=== PATIENT | male | born 1960 | race Two or more races ===

== ENCOUNTER 2016-12-04 22:38 | Emergency (ER) | payer MEDICAID ==
[~2016-12-04] VITALS: Ht 180.3 cm; Wt 82.0 kg
[~2016-12-04 22:38] MED LIST: HYDR-3245 PO; METH750T2 PO; METO25TA35 PO; TRAM50TA2 PO
[2016-12-04] MEDS ORDERED: SODIUM CHLORIDE FLUSH 10ML SYR IVF ONE (23:00)
[2016-12-04 23:13] LABS: HEMATOCRIT 34.3 % (39.2-51.8); WHITE BLOOD COUNT 5.8 x10^3/uL (3.4-10)
[2016-12-04 23:18] LABS: BLOOD UREA NITROGEN 6 mg/dL (7-18)
[2016-12-04 23:19] LABS: ASPARTATE AMINO TRANSFERASE 48 U/L (15-37)
[2016-12-04 23:23] LABS: IS PT STATUS REG ER OR PRE ER? YES
[2016-12-05 01:48] VITALS: BP 138/84
== END 2016-12-05 01:50 | disposition home or self-care (01) ==
LOC: ED 23:11
DX: R60.0 Localized edema (principal); I10 Essential (primary) hypertension; Z72.9 Problem related to lifestyle, unspecified; F19.10 Other psychoactive substance abuse, uncomplicated; F10.10 Alcohol abuse, uncomplicated
CPT/HCPCS: 36415; 71010; 80053; 83880; 84484; 85025; 87040; 93005; 93970; 99285

== ENCOUNTER 2016-12-19 15:00 | Inpatient (IN) | payer OTHER, MEDICAID ==
[~2016-12-19] VITALS: Ht 180.3 cm; Wt 77.9 kg
[2016-12-19] MEDS ORDERED: SODIUM CHLORIDE FLUSH 10ML SYR IVF ONE (15:30)
[2016-12-19] MEDS ORDERED: FUROSEMIDE 40 MG/4 ML ONE (15:39)
[2016-12-19 15:48] LABS: HEMOGLOBIN 10.1 g/dL (13.7-18.0); WHITE BLOOD COUNT 4.9 x10^3/uL (3.4-10)
[2016-12-19 16:00] LABS: BLOOD UREA NITROGEN 9 mg/dL (7-18)
[2016-12-19 16:08] LABS: IS PT STATUS REG ER OR PRE ER? YES
[2016-12-19] MEDS ORDERED: morphine SULFATE 10 MG/ML, 1ML ONE ×2 (17:02→19:18)
[2016-12-19] MEDS: MORPHINE SULFATE 4 MG/ML, 1ML IVPush PRN ×2 (17:04→19:23)
[2016-12-19] MEDS ORDERED: ENOXAPARIN 40 MG/0.4 ML SQ SCH (18:00)
[2016-12-19] MEDS ORDERED: ENALAPRILAT 1.25 MG/ML, 2ML IVPush PRN (18:00)
[2016-12-19] MEDS ORDERED: SODIUM CHLORIDE 0.9% 1,000ML IVBOLUS ONE (18:00)
[2016-12-19] MEDS ORDERED: DOCUSATE 100 MG CAPSULE PO PRN (18:00)
[2016-12-19] MEDS ORDERED: ACETAMINOPHEN 325 MG TABLET PO PRN (18:00)
[2016-12-19 20:25] VITALS: BP 122/78
[2016-12-19 21:40] LABS: IS PT STATUS REG ER OR PRE ER? NO
[2016-12-19 21:59] VITALS: BP 122/78
[2016-12-19] MEDS: TRAZODONE 50MG TABLET PO PRN (22:32)
[2016-12-20 00:25] VITALS: BP 99/63
[2016-12-20 03:25] LABS: HEMATOCRIT 28.3 % (39.2-51.8); HEMOGLOBIN 9.6 g/dL (13.7-18.0)
[2016-12-20 03:33] LABS: BLOOD UREA NITROGEN 8 mg/dL (7-18)
[2016-12-20 03:40] LABS: IS PT STATUS REG ER OR PRE ER? NO
[2016-12-20 08:30] VITALS: BP 127/74
[2016-12-20] MEDS ORDERED: FUROSEMIDE 40 MG/4 ML IV SCH (09:00)
[2016-12-20] MEDS ORDERED: MAGNESIUM SULFATE PMX 2GM/50ML 50 ML IV ONE (10:00)
[2016-12-20] MEDS: WARFARIN MODERAT DOSE PROTOCOL XX SCH (12:00)
[2016-12-20] MEDS: FUROSEMIDE 40 MG TABLET PO SCH (12:30)
[2016-12-20 14:30] VITALS: BP 117/72
[2016-12-20] MEDS ORDERED: FURO40TA6 PO (15:30)
[2016-12-20] MEDS ORDERED: APIX5TAB PO (15:30)
[2016-12-20] MEDS ORDERED: POTA20TA6 PO (15:30)
[2016-12-20 19:26] VITALS: BP 111/70
[2016-12-20] MEDS ORDERED: WARFARIN 7.5 MG TABLET PO-COUM ONE (19:30)
[2016-12-20] MEDS: TRAZODONE 50MG TABLET PO PRN (20:22)
[2016-12-20] MEDS: ENOXAPARIN 80 MG/0.8 ML SQ SCH (20:22)
[2016-12-20] MEDS ORDERED: APIXABAN 5 MG TABLET PO SCH (21:00)
[2016-12-21 01:06] VITALS: BP 155/90
[2016-12-21 05:41] LABS: BLOOD UREA NITROGEN 10 mg/dL (7-18)
[2016-12-21 08:30] VITALS: BP 114/72
[2016-12-21] MEDS: ENOXAPARIN 80 MG/0.8 ML SQ SCH ×2 (10:06→22:06)
[2016-12-21] MEDS: POTASSIUM CHLORIDE 20 MEQ TAB.ER.PRT PO SCH (10:06)
[2016-12-21] MEDS: FUROSEMIDE 40 MG TABLET PO SCH (10:07)
[2016-12-21] MEDS: WARFARIN MODERAT DOSE PROTOCOL XX SCH (12:00)
[2016-12-21 14:30] VITALS: BP 117/76
[2016-12-21] MEDS ORDERED: WARFARIN 7.5 MG TABLET PO-COUM ONE (18:00)
[2016-12-21 20:08] VITALS: BP 132/77
[2016-12-22 02:30] VITALS: BP 110/68
[2016-12-22 06:29] LABS: BLOOD UREA NITROGEN 10 mg/dL (7-18)
[2016-12-22 07:36] VITALS: BP 114/70
[2016-12-22] MEDS: POTASSIUM CHLORIDE 20 MEQ TAB.ER.PRT PO SCH (07:41)
[2016-12-22] MEDS: FUROSEMIDE 40 MG TABLET PO SCH (07:42)
[2016-12-22] MEDS: ENOXAPARIN 80 MG/0.8 ML SQ SCH ×2 (10:22→22:15)
[2016-12-22] MEDS: WARFARIN MODERAT DOSE PROTOCOL XX SCH (11:45)
[2016-12-22 14:53] VITALS: BP 109/69
[2016-12-22] MEDS: HYDROcodone/APAP 5/325 TABLET PO PRN ×2 (15:00→22:14)
[2016-12-22] MEDS ORDERED: DOCUSATE 100 MG CAPSULE PO PRN (16:00)
[2016-12-22] MEDS ORDERED: ACETAMINOPHEN 325 MG TABLET PO PRN (16:00)
[2016-12-22] MEDS ORDERED: FUROSEMIDE 20 MG/2 ML IV ONE (16:00)
[2016-12-22] MEDS ORDERED: ENALAPRILAT 1.25 MG/ML, 2ML IVPush PRN (16:00)
[2016-12-22] MEDS ORDERED: WARFARIN 7.5 MG TABLET PO-COUM ONE (18:00)
[2016-12-22 20:00] VITALS: BP 130/76
[2016-12-23 02:00] VITALS: BP 82/52
[2016-12-23 05:32] VITALS: BP 96/61
[2016-12-23 05:41] LABS: BLOOD UREA NITROGEN 21 mg/dL (7-18)
[2016-12-23] MEDS: SODIUM CHLORIDE 0.9% 1,000 ML IV SCH ×2 (08:12→21:18)
[2016-12-23] MEDS: POTASSIUM CHLORIDE 20 MEQ TAB.ER.PRT PO SCH (08:12)
[2016-12-23] MEDS: ENOXAPARIN 80 MG/0.8 ML SQ SCH ×2 (08:12→21:18)
[2016-12-23 08:19] VITALS: BP 116/76
[2016-12-23] MEDS: WARFARIN MODERAT DOSE PROTOCOL XX SCH (11:26)
[2016-12-23 15:46] VITALS: BP 113/70
[2016-12-23] MEDS: HYDROcodone/APAP 5/325 TABLET PO PRN (15:51)
[2016-12-23] MEDS ORDERED: WARFARIN 10 MG TABLET PO-COUM ONE (18:00)
[2016-12-23 19:54] VITALS: BP 113/71
[2016-12-24 02:19] VITALS: BP 126/79
[2016-12-24] MEDS: HYDROcodone/APAP 5/325 TABLET PO PRN (05:21)
[2016-12-24 06:09] LABS: BLOOD UREA NITROGEN 17 mg/dL (7-18)
[2016-12-24 08:07] VITALS: BP 118/69
[2016-12-24] MEDS: ENOXAPARIN 80 MG/0.8 ML SQ SCH (09:25)
[2016-12-24] MEDS: POTASSIUM CHLORIDE 20 MEQ TAB.ER.PRT PO SCH (09:26)
[2016-12-24] MEDS ORDERED: ENOX80SY4 SQ (09:43)
[2016-12-24] MEDS ORDERED: WARF10TA PO-COUM (09:43)
[2016-12-24] MEDS: WARFARIN MODERAT DOSE PROTOCOL XX SCH (11:20)
[2016-12-24] MEDS ORDERED: WARFARIN 10 MG TABLET PO-COUM ONE (18:00)
== END 2016-12-24 13:49 | disposition home or self-care (01) | DRG 291 ==
LOC: ED 17:09 → EDIP 17:10 → ED 19:11 → 5SO 20:16 → 3NE 12-21 17:30
PROVIDERS: ADMIT Family Medicine; ATTEND Family Medicine
DX: I11.0 Hypertensive heart disease with heart failure (principal); E43 Unspecified severe protein-calorie malnutrition; E86.1 Hypovolemia; Z79.01 Long term (current) use of anticoagulants; E87.1 Hypo-osmolality and hyponatremia; D64.9 Anemia, unspecified; F10.20 Alcohol dependence, uncomplicated; F17.210 Nicotine dependence, cigarettes, uncomplicated; G89.29 Other chronic pain; I50.33 Acute on chronic diastolic (congestive) heart failure; K76.9 Liver disease, unspecified; M19.90 Unspecified osteoarthritis, unspecified site; M71.20 Synovial cyst of popliteal space [Baker], unspecified knee; M85.80 Other specified disorders of bone density and structure, unspecified site; Z59.0 Homelessness; Z65.3 Problems related to other legal circumstances; Z82.3 Family history of stroke; Z86.718 Personal history of other venous thrombosis and embolism; Z68.24 Body mass index [BMI] 24.0-24.9, adult
CPT/HCPCS: 36415; 71010; 80048; 80061; 80076; 82040; 83605; 83735; 83880; 83930; 83935; 84484; 85025; 85610; 93005; 93306; 93970; 96372; 96374; 96376; J1650; J1940; J3475; J7030

== ENCOUNTER 2016-12-27 17:46 | Inpatient (IN) | payer OTHER, MEDICAID ==
[~2016-12-27] VITALS: Ht 180.3 cm; Wt 82.2 kg
[~2016-12-27 17:46] MED LIST changes: +APIX5TAB PO; +ENOX80SY4 SQ; +FURO40TA6 PO; +POTA20TA6 PO; +WARF10TA PO-COUM
[2016-12-27] MEDS ORDERED: SODIUM CHLORIDE FLUSH 10ML SYR IVF ONE (18:30)
[2016-12-27] MEDS ORDERED: SODIUM CHLORIDE 0.9% 1,000ML IVBOLUS ONE (18:30)
[2016-12-27 18:36] LABS: HEMATOCRIT 29.9 % (39.2-51.8); HEMOGLOBIN 10.1 g/dL (13.7-18.0); WHITE BLOOD COUNT 22.4 x10^3/uL (3.4-10)
[2016-12-27 18:48] LABS: BLOOD UREA NITROGEN 25 mg/dL (7-18)
[2016-12-27 18:53] LABS: ASPARTATE AMINO TRANSFERASE 61 U/L (15-37)
[2016-12-27 18:54] LABS: IS PT STATUS REG ER OR PRE ER? YES
[2016-12-27] MEDS ORDERED: METO25TA35 PO (19:15)
[2016-12-27] MEDS ORDERED: CHOL200024 PO (19:15)
[2016-12-27] MEDS ORDERED: FURO20TA3 PO (19:15)
[2016-12-27] MEDS ORDERED: MULT-257 PO (19:15)
[2016-12-27] MEDS ORDERED: ACET325T26 PO (19:15)
[2016-12-27] MEDS ORDERED: POTA20TA89 PO (19:15)
[2016-12-27] MEDS ORDERED: OMEP-110 PO (19:15)
[2016-12-27] MEDS ORDERED: SODIUM CHLORIDE FLUSH 10ML SYR IVF PRN (19:30)
[2016-12-27] MEDS: SODIUM CHLORIDE 0.9% 1,000 ML IV SCH (20:10)
[2016-12-27] MEDS ORDERED: ASPIRIN 325 MG TABLET PO ONE (20:30)
[2016-12-27] MEDS ORDERED: POLYETHYLENE GLYCOL 17 GM PACKET PO PRN (20:30)
[2016-12-27] MEDS ORDERED: ONDANSETRON 2MG/ML, 2ML IVPush PRN (20:30)
[2016-12-27] MEDS ORDERED: ACETAMINOPHEN 325 MG TABLET PO PRN (20:30)
[2016-12-27] MEDS ORDERED: BISACODYL 10 MG SUPP PR PRN (20:30)
[2016-12-27] MEDS ORDERED: VANCOMYCIN PER PHARMACY MC PRN (20:30)
[2016-12-27] MEDS ORDERED: PHARMACOKINETIC MONITORING MC PRN (21:00)
[2016-12-27] MEDS ORDERED: PHARMACOKINETIC CONSULTATION MC ONE (21:00)
[2016-12-27] MEDS ORDERED: WARFARIN 10 MG TABLET PO-COUM ONE (22:00)
[2016-12-27] MEDS: PIPERACILLIN/TAZO/PMX 3.375GM 50 ML IV SCH (22:05)
[2016-12-27] MEDS: METOPROLOL TARTRATE 25 MG TABLET PO SCH (22:06)
[2016-12-27 22:11] VITALS: BP 102/63
[2016-12-27] MEDS: VANCOMYCIN 1,600 MG in SODIUM CHLORIDE 0.9% 250 ML IV SCH (23:12)
[2016-12-28 00:45] LABS: IS PT STATUS REG ER OR PRE ER? NO
[2016-12-28 01:33] VITALS: BP 84/48
[2016-12-28 02:10] LABS: POTASSIUM,URINE RANDOM 71 mmol/L
[2016-12-28 02:45] VITALS: BP 93/60
[2016-12-28] MEDS: PIPERACILLIN/TAZO/PMX 3.375GM 50 ML IV SCH ×4 (04:15→21:50)
[2016-12-28 06:14] LABS: HEMATOCRIT 29.9 % (39.2-51.8); HEMOGLOBIN 9.7 g/dL (13.7-18.0); WHITE BLOOD COUNT 13.1 x10^3/uL (3.4-10)
[2016-12-28 06:26] LABS: BLOOD UREA NITROGEN 26 mg/dL (7-18)
[2016-12-28 06:34] LABS: ASPARTATE AMINO TRANSFERASE 50 U/L (15-37); IS PT STATUS REG ER OR PRE ER? NO
[2016-12-28 08:55] VITALS: BP 95/61
[2016-12-28] MEDS: METOPROLOL TARTRATE 25 MG TABLET PO SCH ×2 (08:56→21:00)
[2016-12-28] MEDS: CHOLECALCIFEROL 1,000 UNIT TABLET PO SCH (08:57)
[2016-12-28] MEDS: SENNA/DOCUSATE TABLET PO SCH (08:57)
[2016-12-28] MEDS: ASPIRIN 81 MG TABLET EC PO SCH (08:57)
[2016-12-28] MEDS: OMEPRAZOLE 20 MG CAPSULE.DR PO SCH (08:57)
[2016-12-28] MEDS: MULTIVITAMIN 1 TABLET PO SCH (08:57)
[2016-12-28] MEDS: SODIUM CHLORIDE 0.9% 1,000 ML IV SCH ×2 (09:01→16:45)
[2016-12-28 11:49] LABS: TOTAL IRON BINDING CAPACITY 261 mcg/dL (250-450)
[2016-12-28 13:18] VITALS: BP 91/47
[2016-12-28] MEDS: IRON SUCROSE COMPLEX 100MG/5ML IV SCH (14:46)
[2016-12-28] MEDS ORDERED: WARFARIN 2 MG TABLET PO-COUM ONE (18:00)
[2016-12-28 19:13] VITALS: BP 96/41
[2016-12-28] MEDS: VANCOMYCIN 1,600 MG in SODIUM CHLORIDE 0.9% 250 ML IV SCH (23:07)
[2016-12-29 01:50] VITALS: BP 115/68
[2016-12-29] MEDS: PIPERACILLIN/TAZO/PMX 3.375GM 50 ML IV SCH ×4 (04:04→21:27)
[2016-12-29 04:44] LABS: HEMATOCRIT 25.1 % (39.2-51.8); HEMOGLOBIN 8.4 g/dL (13.7-18.0); WHITE BLOOD COUNT 8.2 x10^3/uL (3.4-10)
[2016-12-29 04:59] LABS: BLOOD UREA NITROGEN 18 mg/dL (7-18)
[2016-12-29 07:30] VITALS: BP 128/74
[2016-12-29] MEDS ORDERED: REGADENOSON 0.4 MG/5 ML SYRINGE ONE (07:59)
[2016-12-29] MEDS: SENNA/DOCUSATE TABLET PO SCH (09:00)
[2016-12-29] MEDS: MULTIVITAMIN 1 TABLET PO SCH (09:52)
[2016-12-29] MEDS: METOPROLOL TARTRATE 25 MG TABLET PO SCH ×2 (09:52→21:27)
[2016-12-29] MEDS: OMEPRAZOLE 20 MG CAPSULE.DR PO SCH (09:52)
[2016-12-29] MEDS: CHOLECALCIFEROL 1,000 UNIT TABLET PO SCH (09:52)
[2016-12-29] MEDS: IRON SUCROSE COMPLEX 100MG/5ML IV SCH (09:52)
[2016-12-29] MEDS: ASPIRIN 81 MG TABLET EC PO SCH (09:52)
[2016-12-29] MEDS: SODIUM CHLORIDE 0.9% 1,000 ML IV SCH ×3 (12:40→20:00)
[2016-12-29 15:28] VITALS: BP 112/71
[2016-12-29] MEDS ORDERED: ONDANSETRON 2MG/ML, 2ML IVPush PRN (16:30)
[2016-12-29] MEDS ORDERED: BISACODYL 10 MG SUPP PR PRN (16:30)
[2016-12-29] MEDS ORDERED: POLYETHYLENE GLYCOL 17 GM PACKET PO PRN (16:30)
[2016-12-29 20:20] VITALS: BP 119/71
[2016-12-30 00:28] VITALS: BP 109/70
[2016-12-30] MEDS: ACETAMINOPHEN 325 MG TABLET PO PRN ×3 (04:00→21:34)
[2016-12-30] MEDS: PIPERACILLIN/TAZO/PMX 3.375GM 50 ML IV SCH ×3 (04:00→21:34)
[2016-12-30] MEDS: ASPIRIN 81 MG TABLET EC PO SCH (05:11)
[2016-12-30] MEDS: SODIUM CHLORIDE 0.9% 1,000 ML IV SCH (05:15)
[2016-12-30 05:16] LABS: HEMATOCRIT 26.1 % (39.2-51.8); HEMOGLOBIN 8.7 g/dL (13.7-18.0); WHITE BLOOD COUNT 6.3 x10^3/uL (3.4-10)
[2016-12-30 05:18] LABS: ASPARTATE AMINO TRANSFERASE 25 U/L (15-37); BLOOD UREA NITROGEN 10 mg/dL (7-18)
[2016-12-30 07:25] VITALS: BP 131/78
[2016-12-30] MEDS: SENNA/DOCUSATE TABLET PO SCH (09:00)
[2016-12-30 09:37] VITALS: BP 116/71
[2016-12-30] MEDS: OMEPRAZOLE 20 MG CAPSULE.DR PO SCH (09:39)
[2016-12-30] MEDS: METOPROLOL TARTRATE 25 MG TABLET PO SCH ×2 (09:39→21:34)
[2016-12-30] MEDS: IRON SUCROSE COMPLEX 100MG/5ML IV SCH (09:40)
[2016-12-30] MEDS: MULTIVITAMIN 1 TABLET PO SCH (09:40)
[2016-12-30] MEDS: CHOLECALCIFEROL 1,000 UNIT TABLET PO SCH (09:40)
[2016-12-30 14:51] VITALS: BP 138/79
[2016-12-30] MEDS ORDERED: WARFARIN 2.5 MG TABLET PO-COUM ONE (18:00)
[2016-12-30 19:11] VITALS: BP 136/64
[2016-12-31 01:44] VITALS: BP 145/83
[2016-12-31] MEDS: PIPERACILLIN/TAZO/PMX 3.375GM 50 ML IV SCH ×3 (03:40→15:35)
[2016-12-31] MEDS: ASPIRIN 81 MG TABLET EC PO SCH (05:40)
[2016-12-31 07:20] VITALS: BP 144/78
[2016-12-31] MEDS: ACETAMINOPHEN 325 MG TABLET PO PRN ×2 (08:32→12:36)
[2016-12-31] MEDS: OMEPRAZOLE 20 MG CAPSULE.DR PO SCH (08:32)
[2016-12-31] MEDS: MULTIVITAMIN 1 TABLET PO SCH (08:32)
[2016-12-31] MEDS: METOPROLOL TARTRATE 25 MG TABLET PO SCH (08:32)
[2016-12-31] MEDS: CHOLECALCIFEROL 1,000 UNIT TABLET PO SCH (08:33)
[2016-12-31] MEDS ORDERED: SENNA/DOCUSATE TABLET PO SCH (09:00)
[2016-12-31] MEDS ORDERED: CEFD300C37 PO (13:31)
[2016-12-31] MEDS ORDERED: Warfarin Maintenance Protocol XX (13:31)
[2016-12-31] MEDS ORDERED: WARF5TAB PO-COUM (13:31)
[2016-12-31 14:37] VITALS: BP 126/78
[2016-12-31] MEDS ORDERED: FLU VACC QS2017-18 (36MOS+) UP/PF 0.5 ML IM-VACC ONE (16:00)
[2016-12-31] MEDS ORDERED: WARFARIN 5 MG TABLET PO-COUM ONE (18:00)
== END 2016-12-31 17:54 | disposition home or self-care (01) | DRG 871 ==
LOC: ED 19:34 → EDIP 19:42 → 5SO 20:37 → 3NE 12-30 14:27
PROVIDERS: ADMIT Hospitalist; ATTEND Hospitalist
DX: A41.9 Sepsis, unspecified organism (principal); E43 Unspecified severe protein-calorie malnutrition; N17.9 Acute kidney failure, unspecified; E87.2 Acidosis; R17 Unspecified jaundice; E87.1 Hypo-osmolality and hyponatremia; I50.32 Chronic diastolic (congestive) heart failure; I11.0 Hypertensive heart disease with heart failure; E86.0 Dehydration; R65.11 Systemic inflammatory response syndrome (SIRS) of non-infectious origin with acute organ dysfunction; R07.89 Other chest pain; D64.9 Anemia, unspecified; D72.829 Elevated white blood cell count, unspecified; Z68.25 Body mass index [BMI] 25.0-25.9, adult; F17.210 Nicotine dependence, cigarettes, uncomplicated; I35.1 Nonrheumatic aortic (valve) insufficiency; B96.4 Proteus (mirabilis) (morganii) as the cause of diseases classified elsewhere; Z59.0 Homelessness; Z79.01 Long term (current) use of anticoagulants; Z82.3 Family history of stroke; Z86.718 Personal history of other venous thrombosis and embolism
CPT/HCPCS: 36415; 71010; 76770; 78452; 80048; 80053; 81001; 82436; 82570; 83540; 83550; 83605; 83735; 84133; 84300; 84484; 84520; 85025; 85610; 85651; 85730; 86141; 87040; 87077; 87086; 87186; 87324; 90686; 93005; 93017; 93308; 96360; J1756; J2543; J2785; J3370; A9502; C9898; J7030; J7050

== ENCOUNTER 2017-03-11 21:07 | Inpatient (IN) | payer MEDICAID, OTHER ==
[~2017-03-11] VITALS: Ht 177.8 cm; Wt 87.8 kg
[~2017-03-11 21:07] MED LIST changes: +ACET325T26 PO; +CEFD300C37 PO; +CHOL200024 PO; +FURO20TA3 PO; +MULT-257 PO; +OMEP-110 PO; +POTA20TA89 PO; +WARF5TAB PO-COUM; +Warfarin Maintenance Protocol XX
[2017-03-11] MEDS ORDERED: HYDROmorphone 1 MG/ML, 1ML IM ONE (21:30)
[2017-03-11] MEDS ORDERED: HYDROcodone/APAP 5/325 TABLET ONE (21:33)
[2017-03-11 22:39] LABS: BASOPHILS # (AUTO) 0.02 x10^3/uL (0-0.1); BASOPHILS % (AUTO) 0 % (0-1); EOSINOPHILS # (AUTO) 0.03 x10^3/uL (0-0.4); EOSINOPHILS % (AUTO) 0 % (1-7); LYMPHOCYTES # (AUTO) 1.81 x10^3/uL (1-3.4); LYMPHOCYTES % (AUTO) 23 % (22-44); MD NO; MEAN CORPUSCULAR HEMOGLOBIN 29.5 pg (27.5-34.5); MEAN CORPUSCULAR HGB CONC 33.4 g/dL (33.2-36.2); MEAN CORPUSCULAR VOLUME 88.4 fL (81-97); MEAN PLATELET VOLUME 7.9 fL (7.4-10.4); MONOCYTES # (AUTO) 0.71 x10^3/uL (0.2-0.8); MONOCYTES % (AUTO) 9 % (2-9); NEUTROPHILS # (AUTO) 5.21 x10^3/uL (1.8-6.8); NEUTROPHILS % (AUTO) 67 % (42-75); PLATELET COUNT 199 x10^3/uL (130-400); RED BLOOD COUNT 3.17 x10^6/uL (4.38-5.82); RED CELL DISTRIBUTION WIDTH 16.4 % (9.4-14.8)
[2017-03-11 22:47] LABS: ANION GAP 9 mmol/L (5-15); CALCIUM 8.8 mg/dL (8.5-10.1); CHLORIDE 96 mmol/L (98-107); CREATININE 0.77 mg/dL (0.7-1.3)
[2017-03-11] MEDS ORDERED: SODIUM CHLORIDE 0.9% 1,000 ML IV ONE (23:11)
[2017-03-11] MEDS ORDERED: MORPHINE SULFATE 4 MG/ML, 1ML IVPush PRN (23:30)
[2017-03-11] MEDS ORDERED: ONDANSETRON 2MG/ML, 2ML IVPush PRN (23:30)
[2017-03-12] MEDS ORDERED: TEMAZEPAM 15 MG CAPSULE PO PRN
[2017-03-12] MEDS ORDERED: ONDANSETRON ODT 4 MG PO PRN
[2017-03-12] MEDS ORDERED: hydrALAzine 20 MG/ML, 1ML IVPush PRN
[2017-03-12 01:02] VITALS: BP 116/69
[2017-03-12 01:30] LABS: INTERNATIONAL NORMALIZED RATIO 1.2 (0.93-1.1); PROTHROMBIN TIME 12.4 Seconds (9.6-11.5)
[2017-03-12] MEDS: SODIUM CHLORIDE 0.9% 1,000 ML IV SCH ×4 (01:45→23:11)
[2017-03-12] MEDS ORDERED: BUPIVACAINE/PF 0.5% ONE (08:15)
[2017-03-12] MEDS ORDERED: EPINEPHRINE 1 MG/ML, 1ML ONE (08:15)
[2017-03-12 08:21] VITALS: BP 135/81
[2017-03-12 08:48] LABS: OSMOLALITY,URINE 415 mOsm/kg (500-850)
[2017-03-12 08:52] LABS: CHLORIDE,URINE RANDOM 58 mmol/L; POTASSIUM,URINE RANDOM 47 mmol/L; SODIUM,URINE RANDOM 38 mmol/L
[2017-03-12] MEDS ORDERED: MIDAZOLAM 1 MG/ML, 2ML ONE (08:54)
[2017-03-12] MEDS ORDERED: SUFentanil 50 MCG/ML, 1ML ONE (08:54)
[2017-03-12] MEDS ORDERED: LIDOCAINE-MPF 2% ,5ML ONE (08:54)
[2017-03-12] MEDS ORDERED: CEFAZOLIN 1,000 MG ONE ×2 (08:54)
[2017-03-12] MEDS ORDERED: PROPOFOL 10 MG/ML, 20ML ONE (08:54)
[2017-03-12] MEDS ORDERED: SODIUM CHLORIDE 0.9% PF 10ML ONE ×2 (08:56→08:57)
[2017-03-12] MEDS ORDERED: ROCURONIUM 10 MG/ML,10ML ONE (08:58)
[2017-03-12] MEDS ORDERED: DEXAMETHASONE 4 MG/ML, 1ML ONE (09:06)
[2017-03-12] MEDS ORDERED: NEOSTIGMINE 1 MG/ML, 10ML ONE (09:06)
[2017-03-12] MEDS ORDERED: KETOROLAC 30 MG/1 ML ONE (09:06)
[2017-03-12] MEDS ORDERED: ONDANSETRON 2MG/ML, 2ML ONE (09:06)
[2017-03-12] MEDS ORDERED: GLYCOPYRROLATE 0.2MG/1ML, 5ML ONE (09:06)
[2017-03-12] MEDS ORDERED: HYDROmorphone 1 MG/ML, 1ML IV PRN (09:30)
[2017-03-12] MEDS ORDERED: ONDANSETRON 2MG/ML, 2ML IVPush PRN (09:30)
[2017-03-12] MEDS ORDERED: ACETAMINOPHEN 325 MG TABLET PO PRN (09:30)
[2017-03-12] MEDS ORDERED: MEPERIDINE/PF 25MG/0.5ML IVPush PRN (09:30)
[2017-03-12] MEDS ORDERED: PROMETHAZINE 25 MG/ML, 1ML IV PRN (09:30)
[2017-03-12] MEDS ORDERED: FENTANYL PF 100 MCG/2ML IV PRN (09:30)
[2017-03-12] MEDS ORDERED: OXYcodone 5 MG/5 ML ORAL.SOL UDC PO PRN (09:30)
[2017-03-12] MEDS ORDERED: LORazepam 2 MG/ML, 1ML IVPush PRN (09:30)
[2017-03-12] MEDS ORDERED: LABETALOL 5MG/ML, 20ML IV PRN (09:30)
[2017-03-12] MEDS ORDERED: hydrALAzine 20 MG/ML, 1ML IV PRN (09:30)
[2017-03-12] MEDS: HYDROmorphone 1 MG/ML, 1ML IV PRN ×2 (10:06→10:40)
[2017-03-12] MEDS ORDERED: ACETAMINOPHEN 650 MG/20.3 ML UDC ONE (10:14)
[2017-03-12] MEDS ORDERED: HYDROmorphone 2 MG/ML, 1ML ONE (10:14)
[2017-03-12] MEDS ORDERED: OXYcodone 5 MG/5 ML ORAL.SOL UDC ONE (10:14)
[2017-03-12] MEDS: CEFAZOLIN PMX 2GM/50ML 50 ML IVPB SCH ×2 (12:33→20:26)
[2017-03-12 13:14] LABS: MEAN CORPUSCULAR HEMOGLOBIN 29.8 pg (27.5-34.5); MEAN CORPUSCULAR HGB CONC 34.3 g/dL (33.2-36.2); MEAN PLATELET VOLUME 8.2 fL (7.4-10.4); PLATELET COUNT 161 x10^3/uL (130-400); RED BLOOD COUNT 2.61 x10^6/uL (4.38-5.82); RED CELL DISTRIBUTION WIDTH 16.5 % (9.4-14.8)
[2017-03-12 13:16] LABS: HEMOGRAM NOTE RECHECKED
[2017-03-12 13:22] LABS: ANION GAP 7 mmol/L (5-15); CALCIUM 8.1 mg/dL (8.5-10.1); CHLORIDE 100 mmol/L (98-107); CREATININE 1.01 mg/dL (0.7-1.3)
[2017-03-12 13:24] VITALS: BP 114/75
[2017-03-12 13:52] LABS: BASOPHILS # (AUTO) 0.02 x10^3/uL (0-0.1); BASOPHILS % (AUTO) 0 % (0-1); EOSINOPHILS % (AUTO) 0 % (1-7); LYMPHOCYTES % (AUTO) 8 % (22-44); MD SCAN; MONOCYTES # (AUTO) 0.38 x10^3/uL (0.2-0.8); MONOCYTES % (AUTO) 6 % (2-9); NEUTROPHILS # (AUTO) 5.67 x10^3/uL (1.8-6.8); NEUTROPHILS % (AUTO) 86 % (42-75)
[2017-03-12] MEDS: OXYcodone IR 5MG TABLET PO PRN ×2 (16:11→20:26)
[2017-03-12] MEDS ORDERED: LORazepam 2 MG/ML, 1ML IV PRN ×5 (18:00)
[2017-03-12] MEDS ORDERED: LORazepam 1MG TABLET PO PRN ×4 (18:00)
[2017-03-12] MEDS: THIAMINE 100MG TABLET PO SCH (18:13)
[2017-03-12 19:48] VITALS: BP 102/64
[2017-03-12] MEDS: DOCUSATE 100 MG CAPSULE PO PRN (20:26)
[2017-03-12] MEDS: LORazepam 0.5MG TABLET PO PRN ×2 (23:05→23:06)
[2017-03-13] VITALS (14 sets, daily range): BP systolic 99–125; BP diastolic 60–75
[2017-03-13] MEDS: OXYcodone IR 5MG TABLET PO PRN ×6 (00:31→21:19)
[2017-03-13] MEDS: CEFAZOLIN PMX 2GM/50ML 50 ML IVPB SCH (04:34)
[2017-03-13 05:30] LABS: MEAN CORPUSCULAR HGB CONC 33.6 g/dL (33.2-36.2); MEAN CORPUSCULAR VOLUME 89.3 fL (81-97); MEAN PLATELET VOLUME 8.6 fL (7.4-10.4); PLATELET COUNT 138 x10^3/uL (130-400); RED BLOOD COUNT 2.06 x10^6/uL (4.38-5.82); RED CELL DISTRIBUTION WIDTH 16.8 % (9.4-14.8)
[2017-03-13 05:43] LABS: ANION GAP 8 mmol/L (5-15); CHLORIDE 105 mmol/L (98-107)
[2017-03-13 05:46] LABS: CREATININE 1.02 mg/dL (0.7-1.3)
[2017-03-13 05:47] LABS: BASOPHILS # (AUTO) 0.01 x10^3/uL (0-0.1); BASOPHILS % (AUTO) 0 % (0-1); EOSINOPHILS % (AUTO) 0 % (1-7); LYMPHOCYTES # (AUTO) 0.92 x10^3/uL (1-3.4); LYMPHOCYTES % (AUTO) 12 % (22-44); MD SCAN; MONOCYTES # (AUTO) 0.76 x10^3/uL (0.2-0.8); MONOCYTES % (AUTO) 10 % (2-9); NEUTROPHILS # (AUTO) 6.27 x10^3/uL (1.8-6.8); NEUTROPHILS % (AUTO) 79 % (42-75)
[2017-03-13] MEDS: PANTOPRAZOLE 40 MG IV IVPush SCH ×2 (09:32→21:18)
[2017-03-13] MEDS: LORazepam 0.5MG TABLET PO PRN ×2 (09:32→13:26)
[2017-03-13] MEDS: FOLIC ACID 1 MG TABLET PO SCH (09:32)
[2017-03-13] MEDS: THIAMINE 100MG TABLET PO SCH (09:32)
[2017-03-13 15:31] LABS: INTERNATIONAL NORMALIZED RATIO 1.14 (0.93-1.1); PROTHROMBIN TIME 11.8 Seconds (9.6-11.5)
[2017-03-13] MEDS: SODIUM CHLORIDE 0.9% 1,000 ML IV SCH ×2 (16:04)
[2017-03-14] MEDS: OXYcodone IR 5MG TABLET PO PRN ×6 (01:35→22:35)
[2017-03-14 01:40] VITALS: BP 123/67
[2017-03-14 03:44] VITALS: BP 121/68
[2017-03-14 06:48] VITALS: BP 120/68
[2017-03-14 06:53] LABS: MEAN CORPUSCULAR HEMOGLOBIN 29.9 pg (27.5-34.5); MEAN CORPUSCULAR HGB CONC 33.5 g/dL (33.2-36.2); MEAN CORPUSCULAR VOLUME 89.4 fL (81-97); MEAN PLATELET VOLUME 8.1 fL (7.4-10.4); PLATELET COUNT 151 x10^3/uL (130-400); RED BLOOD COUNT 2.54 x10^6/uL (4.38-5.82); RED CELL DISTRIBUTION WIDTH 16.8 % (9.4-14.8)
[2017-03-14 07:02] LABS: ANION GAP 6 mmol/L (5-15); CALCIUM 7.9 mg/dL (8.5-10.1); CHLORIDE 105 mmol/L (98-107); CREATININE 0.73 mg/dL (0.7-1.3)
[2017-03-14 07:17] LABS: BASOPHILS # (AUTO) 0.03 x10^3/uL (0-0.1); BASOPHILS % (AUTO) 1 % (0-1); EOSINOPHILS # (AUTO) 0.03 x10^3/uL (0-0.4); EOSINOPHILS % (AUTO) 0 % (1-7); LYMPHOCYTES % (AUTO) 25 % (22-44); MD SCAN; MONOCYTES # (AUTO) 0.68 x10^3/uL (0.2-0.8); MONOCYTES % (AUTO) 9 % (2-9); NEUTROPHILS # (AUTO) 4.87 x10^3/uL (1.8-6.8); NEUTROPHILS % (AUTO) 65 % (42-75)
[2017-03-14] MEDS: THIAMINE 100MG TABLET PO SCH (09:09)
[2017-03-14] MEDS: FOLIC ACID 1 MG TABLET PO SCH (09:09)
[2017-03-14] MEDS: PANTOPRAZOLE 40 MG IV IVPush SCH ×2 (09:10→19:58)
[2017-03-14 13:22] VITALS: BP 133/75
[2017-03-14] MEDS ORDERED: BISACODYL 10 MG SUPP PR PRN (16:30)
[2017-03-14] MEDS: SODIUM CHLORIDE 0.9% 1,000 ML IV SCH (18:33)
[2017-03-14] MEDS: DOCUSATE 100 MG CAPSULE PO PRN (19:58)
[2017-03-14 19:59] VITALS: BP 129/72
[2017-03-15] MEDS: OXYcodone IR 5MG TABLET PO PRN ×5 (02:37→18:33)
[2017-03-15 02:38] VITALS: BP 128/76
[2017-03-15 07:45] VITALS: BP 125/66
[2017-03-15] MEDS: PANTOPRAZOLE 40 MG IV IVPush SCH ×2 (08:46→20:39)
[2017-03-15] MEDS: FOLIC ACID 1 MG TABLET PO SCH (08:46)
[2017-03-15] MEDS: SENNA/DOCUSATE TABLET PO SCH (08:46)
[2017-03-15] MEDS: THIAMINE 100MG TABLET PO SCH (08:46)
[2017-03-15 10:09] VITALS: BP 134/72
[2017-03-15] MEDS: SODIUM CHLORIDE 0.9% 1,000 ML IV SCH (12:01)
[2017-03-15 13:03] VITALS: BP 129/76
[2017-03-15 19:35] VITALS: BP 106/67
[2017-03-16 00:25] VITALS: BP 136/80
[2017-03-16] MEDS: OXYcodone IR 5MG TABLET PO PRN ×5 (00:50→23:55)
[2017-03-16 05:36] LABS: BASOPHILS # (AUTO) 0.02 x10^3/uL (0-0.1); BASOPHILS % (AUTO) 0 % (0-1); EOSINOPHILS # (AUTO) 0.25 x10^3/uL (0-0.4); EOSINOPHILS % (AUTO) 3 % (1-7); LYMPHOCYTES % (AUTO) 21 % (22-44); MD NO; MEAN CORPUSCULAR HEMOGLOBIN 30.6 pg (27.5-34.5); MEAN CORPUSCULAR HGB CONC 34.2 g/dL (33.2-36.2); MEAN CORPUSCULAR VOLUME 89.7 fL (81-97); MEAN PLATELET VOLUME 7.7 fL (7.4-10.4); MONOCYTES # (AUTO) 1.22 x10^3/uL (0.2-0.8); MONOCYTES % (AUTO) 15 % (2-9); NEUTROPHILS # (AUTO) 5.14 x10^3/uL (1.8-6.8); NEUTROPHILS % (AUTO) 61 % (42-75); PLATELET COUNT 228 x10^3/uL (130-400); RED BLOOD COUNT 2.71 x10^6/uL (4.38-5.82); RED CELL DISTRIBUTION WIDTH 16.6 % (9.4-14.8)
[2017-03-16 05:42] LABS: CHLORIDE 100 mmol/L (98-107)
[2017-03-16] MEDS: SODIUM CHLORIDE 0.9% 1,000 ML IV SCH ×2 (05:53→22:34)
[2017-03-16 05:54] LABS: ALANINE AMINOTRANSFERASE 26 U/L (12-78); ALBUMIN 2.5 g/dL (3.4-5.0); ALKALINE PHOSPHATASE 83 U/L (45-117); ANION GAP 6 mmol/L (5-15); BILIRUBIN,TOTAL 1.2 mg/dL (0.2-1.0); CALCIUM 8.3 mg/dL (8.5-10.1); CREATININE 0.63 mg/dL (0.7-1.3); TOTAL PROTEIN 8.3 g/dL (6.4-8.2)
[2017-03-16 07:41] VITALS: BP 130/84
[2017-03-16] MEDS: FOLIC ACID 1 MG TABLET PO SCH (08:13)
[2017-03-16] MEDS: THIAMINE 100MG TABLET PO SCH (08:13)
[2017-03-16] MEDS: SENNA/DOCUSATE TABLET PO SCH (08:14)
[2017-03-16] MEDS: PANTOPRAZOLE 40 MG IV IVPush SCH ×2 (08:14→19:51)
[2017-03-16 13:47] VITALS: BP 147/84
[2017-03-16 19:23] LABS: OCCULT BLOOD NEGATIVE (NEGATIVE)
[2017-03-16 19:50] VITALS: BP 120/76
[2017-03-17 01:22] VITALS: BP 115/72
[2017-03-17] MEDS: OXYcodone IR 5MG TABLET PO PRN ×5 (04:04→23:02)
[2017-03-17 05:39] LABS: BASOPHILS # (AUTO) 0.02 x10^3/uL (0-0.1); BASOPHILS % (AUTO) 0 % (0-1); EOSINOPHILS # (AUTO) 0.42 x10^3/uL (0-0.4); EOSINOPHILS % (AUTO) 5 % (1-7); LYMPHOCYTES # (AUTO) 1.55 x10^3/uL (1-3.4); LYMPHOCYTES % (AUTO) 20 % (22-44); MD NO; MEAN CORPUSCULAR HEMOGLOBIN 30.2 pg (27.5-34.5); MEAN CORPUSCULAR HGB CONC 33.8 g/dL (33.2-36.2); MEAN CORPUSCULAR VOLUME 89.3 fL (81-97); MEAN PLATELET VOLUME 7.7 fL (7.4-10.4); MONOCYTES % (AUTO) 15 % (2-9); NEUTROPHILS % (AUTO) 60 % (42-75); PLATELET COUNT 237 x10^3/uL (130-400); RED BLOOD COUNT 2.76 x10^6/uL (4.38-5.82); RED CELL DISTRIBUTION WIDTH 16.9 % (9.4-14.8)
[2017-03-17 05:49] LABS: CHLORIDE 98 mmol/L (98-107)
[2017-03-17 05:58] LABS: ALANINE AMINOTRANSFERASE 24 U/L (12-78); ALBUMIN 2.4 g/dL (3.4-5.0); ALKALINE PHOSPHATASE 88 U/L (45-117); ANION GAP 7 mmol/L (5-15); BILIRUBIN,TOTAL 1.5 mg/dL (0.2-1.0); CALCIUM 8.3 mg/dL (8.5-10.1); CREATININE 0.61 mg/dL (0.7-1.3); TOTAL PROTEIN 8.3 g/dL (6.4-8.2)
[2017-03-17 07:32] VITALS: BP 116/71
[2017-03-17] MEDS: SENNA/DOCUSATE TABLET PO SCH (08:35)
[2017-03-17] MEDS: FOLIC ACID 1 MG TABLET PO SCH (08:35)
[2017-03-17] MEDS: THIAMINE 100MG TABLET PO SCH (08:35)
[2017-03-17] MEDS: PANTOPRAZOLE 40 MG IV IVPush SCH ×2 (08:35→20:19)
[2017-03-17 15:08] VITALS: BP 129/74
[2017-03-17] MEDS: SODIUM CHLORIDE 0.9% 1,000 ML IV SCH (18:24)
[2017-03-17 20:05] VITALS: BP 113/75
[2017-03-18 01:31] VITALS: BP 99/64
[2017-03-18] MEDS: OXYcodone IR 5MG TABLET PO PRN ×4 (03:00→20:44)
[2017-03-18 03:36] LABS: MICROSCOPIC AUTO
[2017-03-18 03:38] LABS: CULTURE INDICATED? YES
[2017-03-18 06:03] LABS: CHLORIDE 97 mmol/L (98-107)
[2017-03-18 06:10] LABS: ALANINE AMINOTRANSFERASE 20 U/L (12-78); ALBUMIN 2.3 g/dL (3.4-5.0); ALKALINE PHOSPHATASE 105 U/L (45-117); ANION GAP 8 mmol/L (5-15); BILIRUBIN,TOTAL 1.1 mg/dL (0.2-1.0); CALCIUM 7.9 mg/dL (8.5-10.1); CREATININE 0.72 mg/dL (0.7-1.3); TOTAL PROTEIN 8.1 g/dL (6.4-8.2)
[2017-03-18 06:12] LABS: BASOPHILS # (AUTO) 0.02 x10^3/uL (0-0.1); BASOPHILS % (AUTO) 0 % (0-1); EOSINOPHILS # (AUTO) 0.44 x10^3/uL (0-0.4); EOSINOPHILS % (AUTO) 6 % (1-7); LYMPHOCYTES # (AUTO) 1.48 x10^3/uL (1-3.4); LYMPHOCYTES % (AUTO) 21 % (22-44); MD NO; MEAN CORPUSCULAR HEMOGLOBIN 29.5 pg (27.5-34.5); MEAN CORPUSCULAR HGB CONC 33.1 g/dL (33.2-36.2); MEAN CORPUSCULAR VOLUME 89.1 fL (81-97); MEAN PLATELET VOLUME 7.7 fL (7.4-10.4); MONOCYTES # (AUTO) 1.24 x10^3/uL (0.2-0.8); MONOCYTES % (AUTO) 18 % (2-9); NEUTROPHILS # (AUTO) 3.76 x10^3/uL (1.8-6.8); NEUTROPHILS % (AUTO) 54 % (42-75); PLATELET COUNT 271 x10^3/uL (130-400); RED BLOOD COUNT 2.63 x10^6/uL (4.38-5.82)
[2017-03-18 07:37] VITALS: BP 101/62
[2017-03-18] MEDS: FOLIC ACID 1 MG TABLET PO SCH (08:26)
[2017-03-18] MEDS: PANTOPRAZOLE 40 MG IV IVPush SCH ×2 (08:26→20:44)
[2017-03-18] MEDS: SENNA/DOCUSATE TABLET PO SCH (08:26)
[2017-03-18] MEDS: THIAMINE 100MG TABLET PO SCH (08:26)
[2017-03-18] MEDS ORDERED: CEFTRIAXONE 2 GM in SODIUM CHLORIDE 0.9% 50 ML IV SCH (09:30)
[2017-03-18] MEDS: CEFTRIAXONE 2 GM in SODIUM CHLORIDE 0.9% 50 ML IV SCH (13:08)
[2017-03-18] MEDS: SODIUM CHLORIDE 0.9% 1,000 ML IV SCH (13:08)
[2017-03-18 13:28] VITALS: BP 110/72
[2017-03-18 20:00] VITALS: BP 123/79
[2017-03-19] MEDS: OXYcodone IR 5MG TABLET PO PRN ×6 (00:41→22:16)
[2017-03-19 02:05] VITALS: BP 106/71
[2017-03-19 05:34] LABS: ALBUMIN 2.4 g/dL (3.4-5.0); ANION GAP 7 mmol/L (5-15); BASOPHILS # (AUTO) 0.04 x10^3/uL (0-0.1); BASOPHILS % (AUTO) 1 % (0-1); CHLORIDE 96 mmol/L (98-107); EOSINOPHILS # (AUTO) 0.48 x10^3/uL (0-0.4); EOSINOPHILS % (AUTO) 6 % (1-7); LYMPHOCYTES # (AUTO) 1.59 x10^3/uL (1-3.4); LYMPHOCYTES % (AUTO) 21 % (22-44); MD NO; MEAN CORPUSCULAR HEMOGLOBIN 30.1 pg (27.5-34.5); MEAN CORPUSCULAR HGB CONC 33.6 g/dL (33.2-36.2); MEAN CORPUSCULAR VOLUME 89.8 fL (81-97); MEAN PLATELET VOLUME 7.7 fL (7.4-10.4); MONOCYTES # (AUTO) 1.42 x10^3/uL (0.2-0.8); MONOCYTES % (AUTO) 19 % (2-9); NEUTROPHILS # (AUTO) 4.11 x10^3/uL (1.8-6.8); NEUTROPHILS % (AUTO) 54 % (42-75); PLATELET COUNT 302 x10^3/uL (130-400); RED BLOOD COUNT 2.56 x10^6/uL (4.38-5.82)
[2017-03-19 05:38] LABS: ALANINE AMINOTRANSFERASE 23 U/L (12-78); ALKALINE PHOSPHATASE 134 U/L (45-117); CREATININE 0.71 mg/dL (0.7-1.3); TOTAL PROTEIN 8.2 g/dL (6.4-8.2)
[2017-03-19] MEDS: SENNA/DOCUSATE TABLET PO SCH (09:10)
[2017-03-19] MEDS: PANTOPRAZOLE 40 MG IV IVPush SCH ×2 (09:10→20:53)
[2017-03-19] MEDS: THIAMINE 100MG TABLET PO SCH (09:10)
[2017-03-19] MEDS: FOLIC ACID 1 MG TABLET PO SCH (09:10)
[2017-03-19] MEDS ORDERED: MAGNESIUM SULFATE PMX 2GM/50ML 50 ML IV ONE (09:30)
[2017-03-19] MEDS ORDERED: POTASSIUM CHLORIDE 20 MEQ TAB.ER.PRT PO ONE (09:30)
[2017-03-19] MEDS ORDERED: FUROSEMIDE 40 MG/4 ML IV ONE (09:30)
[2017-03-19 11:09] VITALS: BP 112/76
[2017-03-19] MEDS: CEFTRIAXONE 2 GM in SODIUM CHLORIDE 0.9% 50 ML IV SCH (13:12)
[2017-03-19] MEDS: MAGNESIUM OXIDE 400 MG TABLET PO SCH ×2 (13:12→20:52)
[2017-03-19 13:25] VITALS: BP 108/68
[2017-03-19 20:31] VITALS: BP 112/67
[2017-03-19] MEDS: PANTOPROZOLE 40MG TABLET PO SCH (20:53)
[2017-03-20] MEDS: OXYcodone IR 5MG TABLET PO PRN ×5 (02:28→20:06)
[2017-03-20 02:35] VITALS: BP 110/68
[2017-03-20 05:35] LABS: BASOPHILS # (AUTO) 0.03 x10^3/uL (0-0.1); BASOPHILS % (AUTO) 0 % (0-1); EOSINOPHILS # (AUTO) 0.31 x10^3/uL (0-0.4); EOSINOPHILS % (AUTO) 5 % (1-7); LYMPHOCYTES # (AUTO) 1.15 x10^3/uL (1-3.4); LYMPHOCYTES % (AUTO) 17 % (22-44); MD NO; MEAN CORPUSCULAR HEMOGLOBIN 29.5 pg (27.5-34.5); MEAN CORPUSCULAR HGB CONC 33.3 g/dL (33.2-36.2); MEAN CORPUSCULAR VOLUME 88.8 fL (81-97); MEAN PLATELET VOLUME 7.4 fL (7.4-10.4); MONOCYTES # (AUTO) 0.85 x10^3/uL (0.2-0.8); MONOCYTES % (AUTO) 13 % (2-9); NEUTROPHILS # (AUTO) 4.45 x10^3/uL (1.8-6.8); NEUTROPHILS % (AUTO) 66 % (42-75); PLATELET COUNT 321 x10^3/uL (130-400); RED BLOOD COUNT 2.61 x10^6/uL (4.38-5.82); RED CELL DISTRIBUTION WIDTH 16.3 % (9.4-14.8)
[2017-03-20 05:46] LABS: CHLORIDE 95 mmol/L (98-107)
[2017-03-20 05:52] LABS: ALANINE AMINOTRANSFERASE 22 U/L (12-78); ALBUMIN 2.4 g/dL (3.4-5.0); ALKALINE PHOSPHATASE 148 U/L (45-117); ANION GAP 8 mmol/L (5-15); BILIRUBIN,TOTAL 1.1 mg/dL (0.2-1.0); CALCIUM 7.9 mg/dL (8.5-10.1); TOTAL PROTEIN 8.3 g/dL (6.4-8.2)
[2017-03-20 07:06] VITALS: BP 103/64
[2017-03-20] MEDS: SENNA/DOCUSATE TABLET PO SCH (09:21)
[2017-03-20] MEDS: MAGNESIUM OXIDE 400 MG TABLET PO SCH ×2 (09:21→20:06)
[2017-03-20] MEDS: PANTOPROZOLE 40MG TABLET PO SCH ×2 (09:21→20:06)
[2017-03-20] MEDS: FOLIC ACID 1 MG TABLET PO SCH (09:21)
[2017-03-20] MEDS: THIAMINE 100MG TABLET PO SCH (09:21)
[2017-03-20] MEDS: CEFTRIAXONE 2 GM in SODIUM CHLORIDE 0.9% 50 ML IV SCH (12:37)
[2017-03-20 15:10] VITALS: BP 104/60
[2017-03-20] MEDS: SODIUM CHLORIDE 0.9% 1,000 ML IV SCH ×2 (15:23→23:49)
[2017-03-20] MEDS ORDERED: FUROSEMIDE 40 MG/4 ML IV ONE (15:30)
[2017-03-20] MEDS ORDERED: POTASSIUM CHLORIDE 20 MEQ TAB.ER.PRT PO ONE (15:30)
[2017-03-20 19:40] VITALS: BP 107/66
[2017-03-21] VITALS (9 sets, daily range): BP systolic 104–111; BP diastolic 64–71
[2017-03-21] MEDS: OXYcodone IR 5MG TABLET PO PRN ×6 (00:14→21:42)
[2017-03-21 06:02] LABS: MEAN CORPUSCULAR HGB CONC 33.5 g/dL (33.2-36.2); MEAN CORPUSCULAR VOLUME 89.5 fL (81-97); MEAN PLATELET VOLUME 7.7 fL (7.4-10.4); PLATELET COUNT 376 x10^3/uL (130-400)
[2017-03-21 06:08] LABS: ALANINE AMINOTRANSFERASE 24 U/L (12-78); ALBUMIN 2.3 g/dL (3.4-5.0); ANION GAP 6 mmol/L (5-15); CALCIUM 7.8 mg/dL (8.5-10.1); CHLORIDE 97 mmol/L (98-107); CREATININE 0.71 mg/dL (0.7-1.3)
[2017-03-21 06:11] LABS: ALKALINE PHOSPHATASE 151 U/L (45-117); BILIRUBIN,TOTAL 0.8 mg/dL (0.2-1.0); TOTAL PROTEIN 8.1 g/dL (6.4-8.2)
[2017-03-21 06:36] LABS: BASOPHILS # (AUTO) 0.05 x10^3/uL (0-0.1); BASOPHILS % (AUTO) 1 % (0-1); EOSINOPHILS # (AUTO) 0.38 x10^3/uL (0-0.4); EOSINOPHILS % (AUTO) 5 % (1-7); LYMPHOCYTES # (AUTO) 1.62 x10^3/uL (1-3.4); LYMPHOCYTES % (AUTO) 22 % (22-44); MD SCAN; MONOCYTES # (AUTO) 1.02 x10^3/uL (0.2-0.8); MONOCYTES % (AUTO) 14 % (2-9); NEUTROPHILS # (AUTO) 4.44 x10^3/uL (1.8-6.8); NEUTROPHILS % (AUTO) 59 % (42-75)
[2017-03-21] MEDS: MAGNESIUM OXIDE 400 MG TABLET PO SCH ×2 (08:13→21:41)
[2017-03-21] MEDS: PANTOPROZOLE 40MG TABLET PO SCH ×2 (08:13→21:41)
[2017-03-21] MEDS: THIAMINE 100MG TABLET PO SCH (08:13)
[2017-03-21] MEDS: SENNA/DOCUSATE TABLET PO SCH (08:13)
[2017-03-21] MEDS: FOLIC ACID 1 MG TABLET PO SCH (08:14)
[2017-03-21] MEDS: SODIUM CHLORIDE 0.9% 1,000 ML IV SCH (08:14)
[2017-03-21] MEDS: CEFTRIAXONE 2 GM in SODIUM CHLORIDE 0.9% 50 ML IV SCH (12:49)
[2017-03-21] MEDS ORDERED: FUROSEMIDE 40 MG/4 ML IV ONE (18:30)
[2017-03-21] MEDS ORDERED: POTASSIUM CHLORIDE 20 MEQ TAB.ER.PRT PO ONE (20:00)
[2017-03-21] MEDS: DOCUSATE 100 MG CAPSULE PO PRN (21:42)
[2017-03-22] MEDS: OXYcodone IR 5MG TABLET PO PRN ×5 (02:00→21:40)
[2017-03-22 02:17] VITALS: BP 107/66
[2017-03-22 05:25] LABS: CHLORIDE 96 mmol/L (98-107)
[2017-03-22 05:29] LABS: BASOPHILS # (AUTO) 0.03 x10^3/uL (0-0.1); BASOPHILS % (AUTO) 1 % (0-1); EOSINOPHILS # (AUTO) 0.32 x10^3/uL (0-0.4); EOSINOPHILS % (AUTO) 4 % (1-7); LYMPHOCYTES # (AUTO) 1.34 x10^3/uL (1-3.4); LYMPHOCYTES % (AUTO) 18 % (22-44); MD NO; MEAN CORPUSCULAR HEMOGLOBIN 29.6 pg (27.5-34.5); MEAN CORPUSCULAR HGB CONC 33.5 g/dL (33.2-36.2); MEAN CORPUSCULAR VOLUME 88.4 fL (81-97); MEAN PLATELET VOLUME 7.5 fL (7.4-10.4); MONOCYTES % (AUTO) 12 % (2-9); NEUTROPHILS % (AUTO) 66 % (42-75); PLATELET COUNT 399 x10^3/uL (130-400); RED BLOOD COUNT 2.86 x10^6/uL (4.38-5.82); RED CELL DISTRIBUTION WIDTH 15.7 % (9.4-14.8)
[2017-03-22 05:39] LABS: ANION GAP 8 mmol/L (5-15); CALCIUM 8.1 mg/dL (8.5-10.1)
[2017-03-22 07:33] VITALS: BP 108/60
[2017-03-22] MEDS: FOLIC ACID 1 MG TABLET PO SCH (09:57)
[2017-03-22] MEDS: PANTOPROZOLE 40MG TABLET PO SCH ×2 (09:57→21:40)
[2017-03-22] MEDS: MAGNESIUM OXIDE 400 MG TABLET PO SCH ×2 (09:57→21:40)
[2017-03-22] MEDS: SENNA/DOCUSATE TABLET PO SCH (09:57)
[2017-03-22] MEDS: THIAMINE 100MG TABLET PO SCH (09:58)
[2017-03-22 14:20] VITALS: BP 123/74
[2017-03-22 18:28] VITALS: BP 146/81
[2017-03-22] MEDS: DOCUSATE 100 MG CAPSULE PO PRN (21:40)
[2017-03-23 00:49] VITALS: BP 116/69
[2017-03-23] MEDS: OXYcodone IR 5MG TABLET PO PRN ×6 (02:09→23:56)
[2017-03-23 05:06] LABS: BASOPHILS # (AUTO) 0.05 x10^3/uL (0-0.1); BASOPHILS % (AUTO) 1 % (0-1); EOSINOPHILS # (AUTO) 0.12 x10^3/uL (0-0.4); EOSINOPHILS % (AUTO) 1 % (1-7); LYMPHOCYTES # (AUTO) 1.29 x10^3/uL (1-3.4); LYMPHOCYTES % (AUTO) 15 % (22-44); MD NO; MEAN CORPUSCULAR HEMOGLOBIN 30.1 pg (27.5-34.5); MEAN CORPUSCULAR HGB CONC 33.8 g/dL (33.2-36.2); MEAN CORPUSCULAR VOLUME 88.8 fL (81-97); MEAN PLATELET VOLUME 7.2 fL (7.4-10.4); MONOCYTES # (AUTO) 0.84 x10^3/uL (0.2-0.8); MONOCYTES % (AUTO) 10 % (2-9); NEUTROPHILS % (AUTO) 73 % (42-75); PLATELET COUNT 423 x10^3/uL (130-400); RED BLOOD COUNT 2.91 x10^6/uL (4.38-5.82); RED CELL DISTRIBUTION WIDTH 16.1 % (9.4-14.8)
[2017-03-23 05:13] LABS: CHLORIDE 96 mmol/L (98-107)
[2017-03-23 05:17] LABS: ANION GAP 7 mmol/L (5-15); CALCIUM 8.2 mg/dL (8.5-10.1); CREATININE 0.67 mg/dL (0.7-1.3)
[2017-03-23 07:30] VITALS: BP 115/72
[2017-03-23] MEDS: FOLIC ACID 1 MG TABLET PO SCH (08:28)
[2017-03-23] MEDS: SENNA/DOCUSATE TABLET PO SCH (08:28)
[2017-03-23] MEDS: PANTOPROZOLE 40MG TABLET PO SCH ×2 (08:28→20:00)
[2017-03-23] MEDS: THIAMINE 100MG TABLET PO SCH (08:28)
[2017-03-23] MEDS: MAGNESIUM OXIDE 400 MG TABLET PO SCH ×2 (08:28→20:00)
[2017-03-23 13:10] VITALS: BP 114/67
[2017-03-23 20:13] VITALS: BP 121/70
[2017-03-23] MEDS: LORazepam 0.5MG TABLET PO PRN (23:56)
[2017-03-24 03:37] VITALS: BP 127/75
[2017-03-24] MEDS: OXYcodone IR 5MG TABLET PO PRN ×5 (04:25→20:18)
[2017-03-24 08:01] VITALS: BP 111/67
[2017-03-24] MEDS: THIAMINE 100MG TABLET PO SCH (08:17)
[2017-03-24] MEDS: PANTOPROZOLE 40MG TABLET PO SCH ×2 (08:17→19:06)
[2017-03-24] MEDS: MAGNESIUM OXIDE 400 MG TABLET PO SCH ×2 (08:17→19:06)
[2017-03-24] MEDS: FOLIC ACID 1 MG TABLET PO SCH (08:17)
[2017-03-24] MEDS: SENNA/DOCUSATE TABLET PO SCH (08:18)
[2017-03-24] MEDS: DOCUSATE 100 MG CAPSULE PO PRN (08:18)
[2017-03-24 13:30] VITALS: BP 123/77
[2017-03-24 19:18] VITALS: BP 121/69
[2017-03-25] MEDS: OXYcodone IR 5MG TABLET PO PRN ×6 (00:29→20:22)
[2017-03-25] MEDS: LORazepam 0.5MG TABLET PO PRN (00:29)
[2017-03-25 02:03] VITALS: BP 115/68
[2017-03-25 07:50] VITALS: BP 118/72
[2017-03-25] MEDS: THIAMINE 100MG TABLET PO SCH (08:33)
[2017-03-25] MEDS: PANTOPROZOLE 40MG TABLET PO SCH ×2 (08:33→20:22)
[2017-03-25] MEDS: FOLIC ACID 1 MG TABLET PO SCH (08:33)
[2017-03-25] MEDS: MAGNESIUM OXIDE 400 MG TABLET PO SCH ×2 (08:33→20:22)
[2017-03-25] MEDS: SENNA/DOCUSATE TABLET PO SCH (08:34)
[2017-03-25] MEDS: DOCUSATE 100 MG CAPSULE PO PRN ×2 (08:34→20:22)
[2017-03-25 15:33] VITALS: BP 107/66
[2017-03-25 19:43] VITALS: BP 125/73
[2017-03-26] MEDS: OXYcodone IR 5MG TABLET PO PRN ×2 (00:53→05:07)
[2017-03-26 02:10] VITALS: BP 107/66
[2017-03-26 08:30] VITALS: BP 115/68
[2017-03-26] MEDS: THIAMINE 100MG TABLET PO SCH (09:00)
[2017-03-26] MEDS: FOLIC ACID 1 MG TABLET PO SCH (09:00)
[2017-03-26] MEDS: SENNA/DOCUSATE TABLET PO SCH (09:00)
[2017-03-26] MEDS: MAGNESIUM OXIDE 400 MG TABLET PO SCH ×2 (09:00→19:37)
[2017-03-26] MEDS: PANTOPROZOLE 40MG TABLET PO SCH ×2 (09:00→19:37)
[2017-03-26] MEDS ORDERED: hydrALAzine 20 MG/ML, 1ML IV PRN (10:00)
[2017-03-26] MEDS ORDERED: DIAZEPAM 5 MG/ML, 2ML IVPush PRN (10:00)
[2017-03-26] MEDS ORDERED: ONDANSETRON 2MG/ML, 2ML IVPush PRN (10:00)
[2017-03-26] MEDS ORDERED: ACETAMINOPHEN 325 MG TABLET PO PRN (10:00)
[2017-03-26] MEDS ORDERED: LORazepam 2 MG/ML, 1ML IVPush PRN (10:00)
[2017-03-26] MEDS ORDERED: ALBUTEROL/IPRATROPIUM 2.5MG/0.5MG, 3 ML NPPB PRN (10:00)
[2017-03-26] MEDS ORDERED: LABETALOL 5MG/ML, 20ML IV PRN (10:00)
[2017-03-26] MEDS ORDERED: PROMETHAZINE 25 MG/ML, 1ML IV PRN (10:00)
[2017-03-26] MEDS ORDERED: OXYcodone 5 MG/5 ML ORAL.SOL UDC PO PRN (10:00)
[2017-03-26] MEDS ORDERED: MEPERIDINE/PF 25MG/0.5ML IVPush PRN (10:00)
[2017-03-26] MEDS ORDERED: MIDAZOLAM 1 MG/ML, 2ML IV PRN (10:00)
[2017-03-26] MEDS ORDERED: MIDAZOLAM 1 MG/ML, 2ML ONE (10:04)
[2017-03-26] MEDS ORDERED: FENTANYL PF 250 MCG/5ML ONE (10:04)
[2017-03-26] MEDS ORDERED: SUCCINYLCHOLINE 20 MG/ML, 10ML ONE (10:25)
[2017-03-26] MEDS ORDERED: HYDROmorphone 2 MG/ML, 1ML ONE ×2 (11:08→11:48)
[2017-03-26] MEDS ORDERED: ONDANSETRON 2MG/ML, 2ML ONE (11:21)
[2017-03-26] MEDS ORDERED: PROPOFOL 10 MG/ML, 20ML ONE (11:21)
[2017-03-26] MEDS ORDERED: DEXAMETHASONE 4 MG/ML, 1ML ONE (11:21)
[2017-03-26] MEDS ORDERED: CEFAZOLIN 1,000 MG ONE (11:21)
[2017-03-26] MEDS ORDERED: OXYcodone 5 MG/5 ML ORAL.SOL UDC ONE (11:32)
[2017-03-26] MEDS ORDERED: FENTANYL PF 100 MCG/2ML ONE (11:32)
[2017-03-26] MEDS: FENTANYL PF 100 MCG/2ML IV PRN ×2 (11:34→11:46)
[2017-03-26] MEDS: HYDROmorphone 1 MG/ML, 1ML IV PRN ×4 (11:51→12:30)
[2017-03-26] MEDS ORDERED: HYDROcodone/APAP 7.5-325MG/15ML UDC PO PRN (14:30)
[2017-03-26] MEDS ORDERED: ONDANSETRON 2MG/ML, 2ML IV PRN (14:30)
[2017-03-26] MEDS ORDERED: HYDROmorphone 1 MG/ML, 1ML IV PRN (14:30)
[2017-03-26] MEDS ORDERED: morphine SULFATE 10 MG/ML, 1ML IV PRN (14:30)
[2017-03-26] MEDS: CEFAZOLIN PMX 1GM/50ML 50 ML IVPB SCH ×2 (14:43→23:27)
[2017-03-26] MEDS: KETOROLAC 30 MG/1 ML IV SCH ×2 (14:43→23:27)
[2017-03-26 14:44] VITALS: BP 115/78
[2017-03-26] MEDS: OXYcodone/APAP 5/325MG TABLET PO PRN ×3 (17:13→23:38)
[2017-03-26 18:41] VITALS: BP 129/78
[2017-03-26] MEDS: DOCUSATE 100 MG CAPSULE PO SCH (19:37)
[2017-03-26] MEDS: SODIUM CHLORIDE FLUSH 10ML SYR IVF SCH (19:44)
[2017-03-26 23:52] VITALS: BP 128/74
[2017-03-27] MEDS: OXYcodone/APAP 5/325MG TABLET PO PRN ×5 (03:46→22:16)
[2017-03-27 03:53] VITALS: BP 129/73
[2017-03-27] MEDS: KETOROLAC 30 MG/1 ML IV SCH ×2 (06:34→07:36)
[2017-03-27] MEDS: ENOXAPARIN 40 MG/0.4 ML SQ SCH (06:34)
[2017-03-27 07:15] VITALS: BP 125/68
[2017-03-27] MEDS: SODIUM CHLORIDE FLUSH 10ML SYR IVF SCH ×2 (07:37→22:16)
[2017-03-27] MEDS ORDERED: KETOROLAC 30 MG/1 ML IV SCH (08:00)
[2017-03-27] MEDS: SENNA/DOCUSATE TABLET PO SCH (09:06)
[2017-03-27] MEDS: THIAMINE 100MG TABLET PO SCH (09:13)
[2017-03-27] MEDS: MAGNESIUM OXIDE 400 MG TABLET PO SCH ×2 (09:13→22:16)
[2017-03-27] MEDS: DOCUSATE 100 MG CAPSULE PO SCH ×2 (09:13→22:16)
[2017-03-27] MEDS: PANTOPROZOLE 40MG TABLET PO SCH ×2 (09:13→22:16)
[2017-03-27] MEDS: FOLIC ACID 1 MG TABLET PO SCH (09:13)
[2017-03-27 13:11] VITALS: BP 157/86
[2017-03-27 18:36] VITALS: BP 152/81
[2017-03-28 01:44] VITALS: BP 131/81
[2017-03-28] MEDS: OXYcodone/APAP 5/325MG TABLET PO PRN ×5 (02:24→19:42)
[2017-03-28] MEDS: ENOXAPARIN 40 MG/0.4 ML SQ SCH (06:30)
[2017-03-28 06:32] VITALS: BP 125/80
[2017-03-28] MEDS: PANTOPROZOLE 40MG TABLET PO SCH ×2 (08:47→19:42)
[2017-03-28] MEDS: FOLIC ACID 1 MG TABLET PO SCH (08:47)
[2017-03-28] MEDS: DOCUSATE 100 MG CAPSULE PO SCH ×2 (08:47→19:42)
[2017-03-28] MEDS: SODIUM CHLORIDE FLUSH 10ML SYR IVF SCH ×2 (08:47→19:42)
[2017-03-28] MEDS: THIAMINE 100MG TABLET PO SCH (08:47)
[2017-03-28] MEDS: MAGNESIUM OXIDE 400 MG TABLET PO SCH ×2 (08:47→19:42)
[2017-03-28] MEDS: SENNA/DOCUSATE TABLET PO SCH (08:47)
[2017-03-28 12:25] VITALS: BP 120/69
[2017-03-28 20:30] VITALS: BP 132/75
[2017-03-29] MEDS: OXYcodone/APAP 5/325MG TABLET PO PRN ×4 (00:11→21:41)
[2017-03-29 00:54] VITALS: BP 132/80
[2017-03-29] MEDS: ENOXAPARIN 40 MG/0.4 ML SQ SCH (06:14)
[2017-03-29 07:35] VITALS: BP 113/69
[2017-03-29] MEDS: THIAMINE 100MG TABLET PO SCH (08:42)
[2017-03-29] MEDS: DOCUSATE 100 MG CAPSULE PO SCH ×2 (08:42→21:41)
[2017-03-29] MEDS: SENNA/DOCUSATE TABLET PO SCH (08:42)
[2017-03-29] MEDS: MAGNESIUM OXIDE 400 MG TABLET PO SCH ×2 (08:42→21:41)
[2017-03-29] MEDS: SODIUM CHLORIDE FLUSH 10ML SYR IVF SCH ×2 (08:42→21:41)
[2017-03-29] MEDS: FOLIC ACID 1 MG TABLET PO SCH (08:42)
[2017-03-29] MEDS: PANTOPROZOLE 40MG TABLET PO SCH ×2 (08:42→21:41)
[2017-03-29 13:30] VITALS: BP 137/80
[2017-03-29 20:21] VITALS: BP 150/87
[2017-03-30 03:07] VITALS: BP 156/89
[2017-03-30] MEDS: OXYcodone/APAP 5/325MG TABLET PO PRN ×4 (06:30→20:10)
[2017-03-30] MEDS: ENOXAPARIN 40 MG/0.4 ML SQ SCH (06:30)
[2017-03-30 07:19] VITALS: BP 128/78
[2017-03-30] MEDS: THIAMINE 100MG TABLET PO SCH (09:51)
[2017-03-30] MEDS: FOLIC ACID 1 MG TABLET PO SCH (09:51)
[2017-03-30] MEDS: DOCUSATE 100 MG CAPSULE PO SCH ×2 (09:51→20:10)
[2017-03-30] MEDS: PANTOPROZOLE 40MG TABLET PO SCH ×2 (09:51→20:10)
[2017-03-30] MEDS: MAGNESIUM OXIDE 400 MG TABLET PO SCH ×2 (09:51→20:11)
[2017-03-30] MEDS: SENNA/DOCUSATE TABLET PO SCH (09:51)
[2017-03-30] MEDS: SODIUM CHLORIDE FLUSH 10ML SYR IVF SCH (09:53)
[2017-03-30 12:50] VITALS: BP 153/95
[2017-03-30] MEDS: POLYETHYLENE GLYCOL 17 GM PACKET PO PRN (15:06)
[2017-03-30 18:38] VITALS: BP 101/64
[2017-03-31 00:09] VITALS: BP 115/70
[2017-03-31] MEDS: OXYcodone/APAP 5/325MG TABLET PO PRN ×5 (04:41→20:53)
[2017-03-31 05:16] LABS: CREATININE 0.84 mg/dL (0.7-1.3)
[2017-03-31] MEDS: ENOXAPARIN 40 MG/0.4 ML SQ SCH (05:55)
[2017-03-31 07:40] VITALS: BP 106/67
[2017-03-31] MEDS: SODIUM CHLORIDE FLUSH 10ML SYR IVF SCH ×3 (08:41→20:54)
[2017-03-31] MEDS: THIAMINE 100MG TABLET PO SCH (08:41)
[2017-03-31] MEDS: SENNA/DOCUSATE TABLET PO SCH (08:42)
[2017-03-31] MEDS: MAGNESIUM OXIDE 400 MG TABLET PO SCH ×2 (08:42→20:53)
[2017-03-31] MEDS: FOLIC ACID 1 MG TABLET PO SCH (08:42)
[2017-03-31] MEDS: DOCUSATE 100 MG CAPSULE PO SCH ×2 (08:42→20:55)
[2017-03-31] MEDS: PANTOPROZOLE 40MG TABLET PO SCH ×2 (08:42→20:53)
[2017-03-31] MEDS: POLYETHYLENE GLYCOL 17 GM PACKET PO PRN (10:55)
[2017-03-31 14:05] VITALS: BP 107/73
[2017-03-31 20:14] VITALS: BP 107/65
[2017-04-01] MEDS: OXYcodone/APAP 5/325MG TABLET PO PRN ×3 (00:58→19:57)
[2017-04-01 03:53] VITALS: BP 124/75
[2017-04-01] MEDS: ENOXAPARIN 40 MG/0.4 ML SQ SCH (05:35)
[2017-04-01 08:02] VITALS: BP 106/70
[2017-04-01] MEDS: FOLIC ACID 1 MG TABLET PO SCH (09:23)
[2017-04-01] MEDS: MAGNESIUM OXIDE 400 MG TABLET PO SCH ×2 (09:23→19:57)
[2017-04-01] MEDS: DOCUSATE 100 MG CAPSULE PO SCH ×2 (09:23→19:57)
[2017-04-01] MEDS: SENNA/DOCUSATE TABLET PO SCH (09:23)
[2017-04-01] MEDS: THIAMINE 100MG TABLET PO SCH (09:23)
[2017-04-01] MEDS: PANTOPROZOLE 40MG TABLET PO SCH ×2 (09:23→19:57)
[2017-04-01] MEDS: SODIUM CHLORIDE FLUSH 10ML SYR IVF SCH ×2 (09:24→19:57)
[2017-04-01 12:40] VITALS: BP 113/67
[2017-04-01 19:20] VITALS: BP 122/77
[2017-04-02] MEDS: OXYcodone/APAP 5/325MG TABLET PO PRN ×5 (00:54→23:06)
[2017-04-02 02:39] VITALS: BP 118/77
[2017-04-02] MEDS: ENOXAPARIN 40 MG/0.4 ML SQ SCH (05:41)
[2017-04-02 07:37] VITALS: BP 91/61
[2017-04-02] MEDS: SENNA/DOCUSATE TABLET PO SCH (09:00)
[2017-04-02] MEDS: THIAMINE 100MG TABLET PO SCH (09:47)
[2017-04-02] MEDS: DOCUSATE 100 MG CAPSULE PO SCH ×2 (09:47→21:22)
[2017-04-02] MEDS: MAGNESIUM OXIDE 400 MG TABLET PO SCH ×2 (09:47→21:22)
[2017-04-02] MEDS: FOLIC ACID 1 MG TABLET PO SCH (09:47)
[2017-04-02] MEDS: PANTOPROZOLE 40MG TABLET PO SCH ×2 (09:47→21:22)
[2017-04-02] MEDS: SODIUM CHLORIDE FLUSH 10ML SYR IVF SCH ×2 (09:48→21:00)
[2017-04-02 13:48] VITALS: BP 115/74
[2017-04-02 20:19] VITALS: BP 105/63
[2017-04-03] MEDS: OXYcodone/APAP 5/325MG TABLET PO PRN ×4 (03:17→19:19)
[2017-04-03 03:55] VITALS: BP 115/73
[2017-04-03] MEDS: ENOXAPARIN 40 MG/0.4 ML SQ SCH (05:59)
[2017-04-03 06:58] VITALS: BP 113/67
[2017-04-03] MEDS: SODIUM CHLORIDE FLUSH 10ML SYR IVF SCH ×2 (09:54→21:59)
[2017-04-03] MEDS: DOCUSATE 100 MG CAPSULE PO SCH ×2 (09:55→21:59)
[2017-04-03] MEDS: PANTOPROZOLE 40MG TABLET PO SCH ×2 (09:55→21:59)
[2017-04-03] MEDS: MAGNESIUM OXIDE 400 MG TABLET PO SCH ×2 (09:55→21:59)
[2017-04-03] MEDS: THIAMINE 100MG TABLET PO SCH (09:55)
[2017-04-03] MEDS: SENNA/DOCUSATE TABLET PO SCH (09:55)
[2017-04-03] MEDS: FOLIC ACID 1 MG TABLET PO SCH (09:55)
[2017-04-03 13:38] VITALS: BP 112/68
[2017-04-03 19:14] VITALS: BP 109/70
[2017-04-04 00:10] VITALS: BP 125/73
[2017-04-04] MEDS: ENOXAPARIN 40 MG/0.4 ML SQ SCH (05:15)
[2017-04-04] MEDS: OXYcodone/APAP 5/325MG TABLET PO PRN ×4 (05:15→21:27)
[2017-04-04 07:59] VITALS: BP 118/71
[2017-04-04] MEDS: SENNA/DOCUSATE TABLET PO SCH (09:21)
[2017-04-04] MEDS: DOCUSATE 100 MG CAPSULE PO SCH ×2 (09:21→21:27)
[2017-04-04] MEDS: SODIUM CHLORIDE FLUSH 10ML SYR IVF SCH ×2 (09:21→21:27)
[2017-04-04] MEDS: FOLIC ACID 1 MG TABLET PO SCH (09:22)
[2017-04-04] MEDS: PANTOPROZOLE 40MG TABLET PO SCH ×2 (09:22→21:27)
[2017-04-04] MEDS: THIAMINE 100MG TABLET PO SCH (09:22)
[2017-04-04] MEDS: MAGNESIUM OXIDE 400 MG TABLET PO SCH ×2 (09:22→21:27)
[2017-04-04 12:52] VITALS: BP 106/66
[2017-04-04 19:23] VITALS: BP 115/70
[2017-04-05 00:50] VITALS: BP 116/71
[2017-04-05] MEDS: ENOXAPARIN 40 MG/0.4 ML SQ SCH (05:35)
[2017-04-05] MEDS: OXYcodone/APAP 5/325MG TABLET PO PRN ×4 (05:35→20:27)
[2017-04-05 05:46] LABS: ALANINE AMINOTRANSFERASE 17 U/L (12-78); ALBUMIN 2.9 g/dL (3.4-5.0); ANION GAP 6 mmol/L (5-15); CALCIUM 8.7 mg/dL (8.5-10.1); CHLORIDE 103 mmol/L (98-107); CREATININE 0.77 mg/dL (0.7-1.3)
[2017-04-05 05:48] LABS: ALKALINE PHOSPHATASE 111 U/L (45-117); BILIRUBIN,TOTAL 0.7 mg/dL (0.2-1.0); TOTAL PROTEIN 9.3 g/dL (6.4-8.2)
[2017-04-05 07:18] VITALS: BP 121/74
[2017-04-05] MEDS: MAGNESIUM OXIDE 400 MG TABLET PO SCH ×2 (09:31→20:27)
[2017-04-05] MEDS: PANTOPROZOLE 40MG TABLET PO SCH ×2 (09:31→20:27)
[2017-04-05] MEDS: THIAMINE 100MG TABLET PO SCH (09:31)
[2017-04-05] MEDS: FOLIC ACID 1 MG TABLET PO SCH (09:31)
[2017-04-05] MEDS: DOCUSATE 100 MG CAPSULE PO SCH (09:31)
[2017-04-05] MEDS: SENNA/DOCUSATE TABLET PO SCH (09:31)
[2017-04-05] MEDS: SODIUM CHLORIDE FLUSH 10ML SYR IVF SCH ×2 (09:32→20:27)
[2017-04-05 12:44] VITALS: BP 115/66
[2017-04-05 20:27] VITALS: BP 113/73
[2017-04-06 00:54] VITALS: BP 123/72
[2017-04-06] MEDS: OXYcodone/APAP 5/325MG TABLET PO PRN ×5 (05:07→21:54)
[2017-04-06] MEDS: ENOXAPARIN 40 MG/0.4 ML SQ SCH (05:08)
[2017-04-06 07:29] VITALS: BP 116/71
[2017-04-06] MEDS: FOLIC ACID 1 MG TABLET PO SCH (09:54)
[2017-04-06] MEDS: MAGNESIUM OXIDE 400 MG TABLET PO SCH ×2 (09:54→21:36)
[2017-04-06] MEDS: THIAMINE 100MG TABLET PO SCH (09:54)
[2017-04-06] MEDS: PANTOPROZOLE 40MG TABLET PO SCH ×2 (09:54→21:36)
[2017-04-06] MEDS: SENNA/DOCUSATE TABLET PO SCH (09:54)
[2017-04-06] MEDS: SODIUM CHLORIDE FLUSH 10ML SYR IVF SCH ×2 (09:55→21:00)
[2017-04-06 13:29] VITALS: BP 108/67
[2017-04-06 20:17] VITALS: BP 123/70
[2017-04-07] MEDS: OXYcodone/APAP 5/325MG TABLET PO PRN ×5 (01:54→20:55)
[2017-04-07 04:59] VITALS: BP 105/66
[2017-04-07] MEDS: ENOXAPARIN 40 MG/0.4 ML SQ SCH (06:35)
[2017-04-07 07:52] VITALS: BP 120/74
[2017-04-07] MEDS: SENNA/DOCUSATE TABLET PO SCH (08:28)
[2017-04-07] MEDS: SODIUM CHLORIDE FLUSH 10ML SYR IVF SCH ×2 (08:28→21:00)
[2017-04-07] MEDS: PANTOPROZOLE 40MG TABLET PO SCH ×2 (08:28→20:55)
[2017-04-07] MEDS: THIAMINE 100MG TABLET PO SCH (08:28)
[2017-04-07] MEDS: MAGNESIUM OXIDE 400 MG TABLET PO SCH ×2 (08:28→20:55)
[2017-04-07] MEDS: FOLIC ACID 1 MG TABLET PO SCH (08:28)
[2017-04-07 13:08] VITALS: BP 113/70
[2017-04-07 19:00] VITALS: BP 114/68
[2017-04-08] MEDS: OXYcodone/APAP 5/325MG TABLET PO PRN ×6 (00:20→23:11)
[2017-04-08 02:20] VITALS: BP 114/70
[2017-04-08] MEDS: ENOXAPARIN 40 MG/0.4 ML SQ SCH (06:13)
[2017-04-08 07:07] VITALS: BP 119/70
[2017-04-08] MEDS: SODIUM CHLORIDE FLUSH 10ML SYR IVF SCH ×2 (09:00→23:12)
[2017-04-08] MEDS: MAGNESIUM OXIDE 400 MG TABLET PO SCH ×2 (09:27→20:58)
[2017-04-08] MEDS: PANTOPROZOLE 40MG TABLET PO SCH ×2 (09:27→20:58)
[2017-04-08] MEDS: FOLIC ACID 1 MG TABLET PO SCH (09:27)
[2017-04-08] MEDS: SENNA/DOCUSATE TABLET PO SCH (09:27)
[2017-04-08] MEDS: THIAMINE 100MG TABLET PO SCH (09:27)
[2017-04-08 12:41] VITALS: BP 118/67
[2017-04-08 18:45] VITALS: BP 110/65
[2017-04-09 01:00] VITALS: BP 113/66
[2017-04-09] MEDS: OXYcodone/APAP 5/325MG TABLET PO PRN ×5 (03:28→21:12)
[2017-04-09] MEDS: ENOXAPARIN 40 MG/0.4 ML SQ SCH (06:18)
[2017-04-09 07:22] VITALS: BP 114/70
[2017-04-09] MEDS: SODIUM CHLORIDE FLUSH 10ML SYR IVF SCH ×2 (09:00→21:13)
[2017-04-09] MEDS: FOLIC ACID 1 MG TABLET PO SCH (09:05)
[2017-04-09] MEDS: MAGNESIUM OXIDE 400 MG TABLET PO SCH ×2 (09:05→21:12)
[2017-04-09] MEDS: SENNA/DOCUSATE TABLET PO SCH (09:05)
[2017-04-09] MEDS: THIAMINE 100MG TABLET PO SCH (09:05)
[2017-04-09] MEDS: PANTOPROZOLE 40MG TABLET PO SCH ×2 (09:06→21:12)
[2017-04-09] MEDS: POLYETHYLENE GLYCOL 17 GM PACKET PO PRN (09:07)
[2017-04-09 14:22] VITALS: BP 112/67
[2017-04-09 19:50] VITALS: BP 105/66
[2017-04-10 02:00] VITALS: BP 111/75
[2017-04-10] MEDS: OXYcodone/APAP 5/325MG TABLET PO PRN ×5 (02:01→19:36)
[2017-04-10] MEDS: ENOXAPARIN 40 MG/0.4 ML SQ SCH (06:30)
[2017-04-10 08:08] VITALS: BP 110/64
[2017-04-10] MEDS: THIAMINE 100MG TABLET PO SCH (10:04)
[2017-04-10] MEDS: MAGNESIUM OXIDE 400 MG TABLET PO SCH ×2 (10:04→19:36)
[2017-04-10] MEDS: SENNA/DOCUSATE TABLET PO SCH (10:04)
[2017-04-10] MEDS: SODIUM CHLORIDE FLUSH 10ML SYR IVF SCH ×2 (10:04→19:36)
[2017-04-10] MEDS: FOLIC ACID 1 MG TABLET PO SCH (10:05)
[2017-04-10] MEDS: PANTOPROZOLE 40MG TABLET PO SCH ×2 (10:05→19:36)
[2017-04-10 14:00] VITALS: BP 157/84
[2017-04-10 19:19] VITALS: BP 107/62
[2017-04-11] MEDS: OXYcodone/APAP 5/325MG TABLET PO PRN ×5 (00:11→22:42)
[2017-04-11 00:12] VITALS: BP 111/68
[2017-04-11] MEDS ORDERED: LORazepam 1MG TABLET PO PRN (03:00)
[2017-04-11] MEDS: ENOXAPARIN 40 MG/0.4 ML SQ SCH (05:02)
[2017-04-11 07:48] VITALS: BP 105/65
[2017-04-11] MEDS: MAGNESIUM OXIDE 400 MG TABLET PO SCH ×2 (10:00→22:41)
[2017-04-11] MEDS: PANTOPROZOLE 40MG TABLET PO SCH ×2 (10:00→22:42)
[2017-04-11] MEDS: FOLIC ACID 1 MG TABLET PO SCH (10:00)
[2017-04-11] MEDS: SENNA/DOCUSATE TABLET PO SCH (10:00)
[2017-04-11] MEDS: THIAMINE 100MG TABLET PO SCH (10:00)
[2017-04-11] MEDS: SODIUM CHLORIDE FLUSH 10ML SYR IVF SCH ×2 (10:01→22:41)
[2017-04-11 13:48] VITALS: BP 111/69
[2017-04-11 19:22] VITALS: BP 131/77
[2017-04-12 01:52] VITALS: BP 107/59
[2017-04-12] MEDS: OXYcodone/APAP 5/325MG TABLET PO PRN ×5 (03:22→21:39)
[2017-04-12 07:01] VITALS: BP 118/74
[2017-04-12] MEDS: SODIUM CHLORIDE FLUSH 10ML SYR IVF SCH ×2 (07:40→21:38)
[2017-04-12] MEDS: THIAMINE 100MG TABLET PO SCH (07:40)
[2017-04-12] MEDS: MAGNESIUM OXIDE 400 MG TABLET PO SCH ×2 (07:40→21:38)
[2017-04-12] MEDS: PANTOPROZOLE 40MG TABLET PO SCH ×2 (07:40→21:39)
[2017-04-12] MEDS: SENNA/DOCUSATE TABLET PO SCH (07:40)
[2017-04-12] MEDS: FOLIC ACID 1 MG TABLET PO SCH (07:40)
[2017-04-12] MEDS: ENOXAPARIN 40 MG/0.4 ML SQ SCH (07:40)
[2017-04-12 14:27] VITALS: BP 115/68
[2017-04-12 19:28] VITALS: BP 116/70
[2017-04-13 01:54] VITALS: BP 118/73
[2017-04-13] MEDS: OXYcodone/APAP 5/325MG TABLET PO PRN ×5 (02:03→19:59)
[2017-04-13 07:41] VITALS: BP 117/73
[2017-04-13] MEDS: SODIUM CHLORIDE FLUSH 10ML SYR IVF SCH ×2 (09:00→19:59)
[2017-04-13] MEDS: THIAMINE 100MG TABLET PO SCH (09:01)
[2017-04-13] MEDS: ENOXAPARIN 40 MG/0.4 ML SQ SCH (09:01)
[2017-04-13] MEDS: FOLIC ACID 1 MG TABLET PO SCH (09:01)
[2017-04-13] MEDS: SENNA/DOCUSATE TABLET PO SCH (09:02)
[2017-04-13] MEDS: MAGNESIUM OXIDE 400 MG TABLET PO SCH ×2 (09:02→19:59)
[2017-04-13] MEDS: PANTOPROZOLE 40MG TABLET PO SCH ×2 (09:02→19:59)
[2017-04-13 12:20] VITALS: BP 116/70
[2017-04-13 19:16] VITALS: BP 111/65
[2017-04-14] MEDS: OXYcodone/APAP 5/325MG TABLET PO PRN ×5 (00:29→19:34)
[2017-04-14 02:13] VITALS: BP 112/69
[2017-04-14 05:21] LABS: BASOPHILS # (AUTO) 0.02 x10^3/uL (0-0.1); BASOPHILS % (AUTO) 0 % (0-1); EOSINOPHILS % (AUTO) 9 % (1-7); LYMPHOCYTES # (AUTO) 1.49 x10^3/uL (1-3.4); LYMPHOCYTES % (AUTO) 34 % (22-44); MD NO; MEAN CORPUSCULAR HEMOGLOBIN 30.1 pg (27.5-34.5); MEAN CORPUSCULAR HGB CONC 33.5 g/dL (33.2-36.2); MEAN CORPUSCULAR VOLUME 89.9 fL (81-97); MONOCYTES # (AUTO) 0.69 x10^3/uL (0.2-0.8); MONOCYTES % (AUTO) 16 % (2-9); NEUTROPHILS # (AUTO) 1.77 x10^3/uL (1.8-6.8); NEUTROPHILS % (AUTO) 41 % (42-75); PLATELET COUNT 233 x10^3/uL (130-400); RED BLOOD COUNT 3.38 x10^6/uL (4.38-5.82); RED CELL DISTRIBUTION WIDTH 17.4 % (9.4-14.8)
[2017-04-14 05:35] LABS: ALBUMIN 2.8 g/dL (3.4-5.0); ANION GAP 5 mmol/L (5-15); CALCIUM 8.7 mg/dL (8.5-10.1); CHLORIDE 103 mmol/L (98-107)
[2017-04-14 05:37] LABS: ALANINE AMINOTRANSFERASE 16 U/L (12-78); ALKALINE PHOSPHATASE 93 U/L (45-117); BILIRUBIN,TOTAL 0.6 mg/dL (0.2-1.0); CREATININE 0.77 mg/dL (0.7-1.3); TOTAL PROTEIN 8.5 g/dL (6.4-8.2)
[2017-04-14 07:13] VITALS: BP 116/69
[2017-04-14] MEDS ORDERED: MAGNESIUM SULFATE PMX 2GM/50ML 50 ML IV ONE (08:00)
[2017-04-14] MEDS: ENOXAPARIN 40 MG/0.4 ML SQ SCH (09:22)
[2017-04-14] MEDS: PANTOPROZOLE 40MG TABLET PO SCH ×2 (09:22→19:34)
[2017-04-14] MEDS: SENNA/DOCUSATE TABLET PO SCH (09:22)
[2017-04-14] MEDS: SODIUM CHLORIDE FLUSH 10ML SYR IVF SCH ×2 (09:22→19:34)
[2017-04-14] MEDS: FOLIC ACID 1 MG TABLET PO SCH (09:22)
[2017-04-14] MEDS: MAGNESIUM OXIDE 400 MG TABLET PO SCH ×2 (09:22→19:34)
[2017-04-14] MEDS: THIAMINE 100MG TABLET PO SCH (09:33)
[2017-04-14 12:56] VITALS: BP 113/63
[2017-04-14 20:30] VITALS: BP 121/69
[2017-04-15] MEDS: OXYcodone/APAP 5/325MG TABLET PO PRN ×5 (00:17→20:20)
[2017-04-15 03:28] VITALS: BP 129/76
[2017-04-15 06:42] VITALS: BP 105/68
[2017-04-15] MEDS: THIAMINE 100MG TABLET PO SCH (10:33)
[2017-04-15] MEDS: PANTOPROZOLE 40MG TABLET PO SCH ×2 (10:34→20:20)
[2017-04-15] MEDS: FOLIC ACID 1 MG TABLET PO SCH (10:34)
[2017-04-15] MEDS: MAGNESIUM OXIDE 400 MG TABLET PO SCH ×2 (10:34→20:20)
[2017-04-15] MEDS: ENOXAPARIN 40 MG/0.4 ML SQ SCH (10:34)
[2017-04-15] MEDS: SENNA/DOCUSATE TABLET PO SCH (10:43)
[2017-04-15] MEDS: SODIUM CHLORIDE FLUSH 10ML SYR IVF SCH ×2 (10:43→20:21)
[2017-04-15 13:04] VITALS: BP 111/67
[2017-04-15 19:21] VITALS: BP 109/67
[2017-04-16] MEDS: OXYcodone/APAP 5/325MG TABLET PO PRN ×5 (01:38→22:49)
[2017-04-16 02:19] VITALS: BP 109/66
[2017-04-16 08:05] VITALS: BP 108/65
[2017-04-16] MEDS: ENOXAPARIN 40 MG/0.4 ML SQ SCH (09:03)
[2017-04-16] MEDS: MAGNESIUM OXIDE 400 MG TABLET PO SCH ×2 (09:04→20:54)
[2017-04-16] MEDS: THIAMINE 100MG TABLET PO SCH (09:04)
[2017-04-16] MEDS: SENNA/DOCUSATE TABLET PO SCH (09:04)
[2017-04-16] MEDS: FOLIC ACID 1 MG TABLET PO SCH (09:04)
[2017-04-16] MEDS: SODIUM CHLORIDE FLUSH 10ML SYR IVF SCH ×2 (09:07→20:54)
[2017-04-16] MEDS: PANTOPROZOLE 40MG TABLET PO SCH ×2 (09:07→20:54)
[2017-04-16 13:20] VITALS: BP 118/68
[2017-04-16 21:55] VITALS: BP 110/62
[2017-04-17 02:00] VITALS: BP 105/65
[2017-04-17] MEDS: OXYcodone/APAP 5/325MG TABLET PO PRN ×3 (03:15→15:52)
[2017-04-17 07:13] VITALS: BP 109/69
[2017-04-17] MEDS ORDERED: MAGNESIUM SULFATE PMX 2GM/50ML 50 ML IV ONE (09:30)
[2017-04-17] MEDS: SODIUM CHLORIDE FLUSH 10ML SYR IVF SCH ×2 (09:35→20:44)
[2017-04-17] MEDS: FOLIC ACID 1 MG TABLET PO SCH (09:35)
[2017-04-17] MEDS: MAGNESIUM OXIDE 400 MG TABLET PO SCH ×2 (09:35→20:44)
[2017-04-17] MEDS: ENOXAPARIN 40 MG/0.4 ML SQ SCH (09:35)
[2017-04-17] MEDS: PANTOPROZOLE 40MG TABLET PO SCH ×2 (09:35→20:44)
[2017-04-17] MEDS: SENNA/DOCUSATE TABLET PO SCH (09:35)
[2017-04-17] MEDS: THIAMINE 100MG TABLET PO SCH (09:38)
[2017-04-17 15:52] VITALS: BP 117/70
[2017-04-17 19:49] VITALS: BP 124/65
[2017-04-18] MEDS: OXYcodone/APAP 5/325MG TABLET PO PRN ×2 (01:25→07:29)
[2017-04-18 01:35] VITALS: BP 126/77
[2017-04-18 08:19] VITALS: BP 114/75
[2017-04-18] MEDS: FOLIC ACID 1 MG TABLET PO SCH (09:29)
[2017-04-18] MEDS: SENNA/DOCUSATE TABLET PO SCH (09:29)
[2017-04-18] MEDS: MAGNESIUM OXIDE 400 MG TABLET PO SCH (09:29)
[2017-04-18] MEDS: ENOXAPARIN 40 MG/0.4 ML SQ SCH (09:29)
[2017-04-18] MEDS: THIAMINE 100MG TABLET PO SCH (09:29)
[2017-04-18] MEDS: PANTOPROZOLE 40MG TABLET PO SCH (09:29)
[2017-04-18] MEDS: SODIUM CHLORIDE FLUSH 10ML SYR IVF SCH (11:52)
[2017-04-18] MEDS ORDERED: PANT40TA5 PO (13:09)
[2017-04-18] MEDS ORDERED: THIA100T6 PO (13:09)
[2017-04-18] MEDS ORDERED: FOLI-17 PO (13:09)
[2017-04-18] MEDS ORDERED: ASPI-621 PO (13:11)
[2017-04-18] MEDS ORDERED: ATOR40TA PO (13:12)
[2017-04-18] MEDS ORDERED: CARV3.1212 PO (13:13)
[2017-04-18 13:35] VITALS: BP 128/73
== END 2017-04-18 14:18 | disposition home or self-care (01) | DRG 492 ==
LOC: ED 23:20 → EDIP 23:44 → 4NOR 03-12 00:54
PROVIDERS: ADMIT Internal Medicine; ATTEND Family Medicine
PROC: 0QSG35Z Reposition Right Tibia with External Fixation Device, Percutaneous Approach (ICD-10-PCS; principal; 2017-03-12 09:00)
PROC: 30233N1 Transfusion of Nonautologous Red Blood Cells into Peripheral Vein, Percutaneous Approach (ICD-10-PCS; 2017-03-13)
PROC: 0QSG04Z Reposition Right Tibia with Internal Fixation Device, Open Approach (ICD-10-PCS; 2017-03-26)
PROC: 0QPGX5Z Removal of External Fixation Device from Right Tibia, External Approach (ICD-10-PCS; 2017-03-26)
DX: S82.141A Displaced bicondylar fracture of right tibia, initial encounter for closed fracture (principal); E43 Unspecified severe protein-calorie malnutrition; I11.0 Hypertensive heart disease with heart failure; I50.32 Chronic diastolic (congestive) heart failure; E87.1 Hypo-osmolality and hyponatremia; E83.42 Hypomagnesemia; D62 Acute posthemorrhagic anemia; S82.001A Unspecified fracture of right patella, initial encounter for closed fracture; M25.00 Hemarthrosis, unspecified joint; N39.0 Urinary tract infection, site not specified; D50.9 Iron deficiency anemia, unspecified; Z68.27 Body mass index [BMI] 27.0-27.9, adult; I35.1 Nonrheumatic aortic (valve) insufficiency; K59.00 Constipation, unspecified; Z96.641 Presence of right artificial hip joint; F10.10 Alcohol abuse, uncomplicated; W01.0XXA Fall on same level from slipping, tripping and stumbling without subsequent striking against object, initial encounter; F17.210 Nicotine dependence, cigarettes, uncomplicated; I25.10 Atherosclerotic heart disease of native coronary artery without angina pectoris; I25.2 Old myocardial infarction; Z59.0 Homelessness; Z82.3 Family history of stroke; Z86.718 Personal history of other venous thrombosis and embolism; Z91.14 Patient's other noncompliance with medication regimen; Y93.89 Activity, other specified; Y92.89 Other specified places as the place of occurrence of the external cause
CPT/HCPCS: 36415; 71045; 72170; 76000; 76001; 80048; 80053; 81001; 82040; 82272; 82436; 82565; 83735; 83930; 83935; 84100; 84133; 84300; 84443; 85014; 85018; 85025; 85610; 86850; 86900; 86923; 87040; 87086; 99285; C1713; J0171; J0690; J0696; J1100; J1170; J1650; J1885; J1940; J2250; J2405; J2704; J2710; J3010; J3490; C9113; J0330; J3475; J7030; P9016